=== PATIENT | female | born 1950 | race Caucasian/White ===

== ENCOUNTER → 2019-09-17 15:59 | Outpatient (CLI) | payer MEDICARE, SELFPAY ==
--- NOTE | ~2019-09-17 | MM_ITS ---
EXAMINATION: MM screening juan a BI w ricardo HISTORY: Screening mammogram TECHNIQUE: Craniocaudal and mediolateral oblique 3-D tomosynthesis images were obtained and synthetic 2-D images were generated. CAD analysis was submitted and interpreted. COMPARISON: Comparison to multiple prior studies sequentially, with oldest reviewed study dated 04/01. BREAST PARENCHYMAL COMPOSITION: There are scattered areas of fibroglandular density. FINDINGS: Stable benign-appearing bilateral breast masses. There is no evidence of suspicious mass, c alcification, or architectural distortion to suggest malignancy in either breast. There has been no s uspicious interval change. IMPRESSION: 1. No mammographic evidence of malignancy. 2. Recommend routine screening mammography in one year. BI-RADS Category 2: Benign finding(s). Reviewed, dictated and finalized at location A.
== END ==
PROVIDERS: PCP Physician Assistant; Visit Provider Physician Assistant
DX: Z12.31 Encounter for screening mammogram for malignant neoplasm of breast (principal)
CPT/HCPCS: 77063; 77067

== ENCOUNTER → 2020-11-08 16:03 | Outpatient (CLI) | payer MEDICARE, SELFPAY ==
--- NOTE | ~2020-11-08 | MM_ITS ---
EXAMINATION: MM screening ju[facility] a BI w ricardo HISTORY: Screening mammogram TECHNIQUE: Craniocaudal and mediolateral oblique 3-D tomosynthesis images were obtained and synthetic 2-D images were generated. CAD analysis was submitted and interpreted. COMPARISON: 09/17/2019, 07/24/2018, 07/10/2017 BREAST PARENCHYMAL COMPOSITION: The breasts are almost entirely fatty. FINDINGS: Again noted are stable left breast masses, considered benign given the lack of interval rajendra nge. There is no evidence of suspicious mass, calcification, or architectural distortion to suggest m alignancy in either breast. There has been no suspicious interval change. IMPRESSION: 1. No mammographic evidence of malignancy. 2. Recommend routine screening mammography in one year. BI-RADS Category 2: Benign finding(s). Reviewed, dictated and finalized at location A.
== END ==
PROVIDERS: PCP Physician Assistant; Visit Provider Physician Assistant
DX: Z12.31 Encounter for screening mammogram for malignant neoplasm of breast (principal)
CPT/HCPCS: 77063; 77067

== ENCOUNTER → 2022-02-22 12:05 | Outpatient (CLI) | payer MEDICARE, OTHER, SELFPAY ==
--- NOTE | ~2022-02-22 | DEXA_ITS ---
Bone Density Report Name: ALON GUNTER Age: 71 Sex: Female Ethnicity: White Date of : 1950 Indication: postmenopausal; screening for osteoporosis; height loss; Referring Provider: GUERA, YOLANDA Mobley Study: Bone densitometry was performed. Exam Date: February 22, 2022 Accession number: [id number] Bone Density: Region BMD T-score Z-score Classification AP Spine (L1-L4) 0.928 -1.1 1.2 Osteopenia Femoral Neck (Left) 0.665 -1.7 0.3 Osteopenia Total Hip (Left) 0.821 -1.0 0.7 Normal Femoral Neck (Right) 0.754 -0.9 1.1 Normal Total Hip (Right) 0.858 -0.7 1.0 Normal Total Hip Mean 0.840 -0.9 0.9 Normal World Health Organization criteria for BMD impression classify patients as: Normal (T-score at or above -1.0), Osteopenia (T-score between -1.0 and -2.5), or Osteoporosis (T-score at or below -2.5). 10-year Fracture Risk(1): Major Osteoporotic Fracture 11% Hip Fracture 2.1% Reported Risk Factors: [place] (), Neck BMD=0.665, BMI=30.0 (1) FRAX(R) Version 3.08. Fracture probability calculated for an untreated patient. Fracture probability may be lower if the patient has received treatment. Previous Exams: Region Exam Age BMD T-score BMD Change BMD Change Date g/cm2 vs Baseline vs Previous AP Spine(L1-L4) 02/22/2022 71 0.928 -1.1 -0.040* -0.040* 09/06/2010 60 0.968 -0.7 Total Hip(Left) 02/22/2022 71 0.821 -1.0 -0.093* -0.093* 09/06/2010 60 0.914 -0.2 Total Hip(Right) 02/22/2022 71 0.858 -0.7 -0.063* -0.063* 09/06/2010 60 0.920 -0.2 *Denotes significance at 95% confidence level, LSC for AP Spine = 0.022 g/cm2, LSC for Total Hip = 0.027 g/cm2 Clinical Information Provided by Patient: Has used the following medications: Vitamin D Patient maximum height was 67 Menopause Age: 48 No regular weight bearing exercise Drinks caffeinated beverages Onset of menses at age 9 Number of children 2 Impression: The patient has low bone mass, based on the Left Femoral Neck T-score. The patient has an estimated ten-year risk of hip fracture of 2.1% and an estimated ten-year risk of major fracture of 11%, based on the WHO FRAX algorithm. The BMD for the AP Spine(L1-L4) decreased, changing by -0.040 since the last DXA exam. The BMD for the Total Hip(Left) decreased, changing by -0.093 since the last DXA exam. The BMD for the Total Hip(Right) decreased, changing by -0.063 since th
== END ==
PROVIDERS: PCP Physician Assistant; Visit Provider Physician Assistant
DX: Z78.0 Asymptomatic menopausal state (principal); M85.88 Other specified disorders of bone density and structure, other site; M85.852 Other specified disorders of bone density and structure, left thigh
CPT/HCPCS: 77080

== ENCOUNTER → 2022-03-20 12:36 | Outpatient (CLI) | payer MEDICARE, OTHER, SELFPAY ==
--- NOTE | ~2022-03-20 | MM_ITS ---
EXAMINATION: MM screening [place] BI w ricardo HISTORY: Screening mammogram TECHNIQUE: Craniocaudal and mediolateral oblique 3-D tomosynthesis images were obtained and synthetic 2-D images were generated. CAD analysis was submitted and interpreted. COMPARISON: 11/08/2020, 09/17/2019, 07/24/2018 BREAST PARENCHYMAL COMPOSITION: The breasts are almost entirely fatty. FINDINGS: Stable left breast masses are again noted and considered benign given the lack of interval change. There is no suspicious mass, calcification, or architectural distortion to suggest malignancy in either breast. There has been no suspicious interval change. IMPRESSION: 1. No mammographic evidence of malignancy. 2. Recommend routine screening mammography in one year. BI-RADS Category 2: Benign finding(s). Reviewed, dictated and finalized at location A.
== END ==
PROVIDERS: PCP Physician Assistant; Visit Provider Physician Assistant
DX: Z12.31 Encounter for screening mammogram for malignant neoplasm of breast (principal)
CPT/HCPCS: 77063; 77067

== ENCOUNTER 2022-06-08 09:28 | Emergency (ER) | payer MEDICARE, OTHER, SELFPAY ==
--- NOTE | ~2022-06-08 | XR_ITS ---
XR chest 2V DATE: 06/08/2022 09:53 INDICATION: Chest pain TECHNIQUE: PA and lateral views COMPARISON: 11/10/2018 2 view chest FINDINGS: Normal heart size. Aortic arch calcification. No hilar or mediastinal enlargement. No pulmonary infiltrate or consolidation, pleural effusion or pulmonary vascular congestion or pneumo thorax. Diffuse osteopenia. Right glenohumeral joint replacement. IMPRESSION: No active cardiac pulmonary disease Aortic calcification Osteopenia Right glenohumeral joint replacement Reviewed, dictated and finalized at location B. LL SHEAR OPERATOR
--- NOTE | 2022-06-08 09:29 | ECG_ITS ---
Measurements Intervals [place] Rate: 79 P: 51 IN: 182 QRS: -18 QRSD: 87 T: 47 QT: 372 QTc: 428 Interpretive Statements SINUS RHYTHM LOW QRS VOLTAGE IN PRECORDIAL LEADS [QRS DEFLECTION < 1.0 mV IN CHEST LEADS] LEFTWARD AXIS BORDERLINE ECG COMPARED TO ECG 11/10/2018 12:09:39 NO SIGNIFICANT CHANGES Electronically Signed On 06-08-2022 17:16:08 [employer] VOLLEYBALL COACH by Naeem Edmond M.D.
[2022-06-08 10:01] VITALS: BP 173/93; PULSE 80; RESP 16; TEMP 36.5; O2SAT 98
[2022-06-08 10:27] LABS: Basophils Percent Auto 0.7 % (0.2-1.2); Eosinophils Absolute Auto 0.1 K/mm3 (0-0.3); Eosinophils Percent Auto 1.1 % (0-4.4); Hematocrit 42.3 % (37.0-47.0); Hemoglobin 13.4 g/dL (12.0-15.0); Immature Granulocyte Absolute 0.03 K/mm3 (0.00-0.031); Immature Granulocyte Percent A 0.5 % (0-0.5); Lymphocytes Absolute Auto 1.91 K/mm3 (0.9-3.2); Lymphocytes Percent Auto 33.7 % (18.3-44.2); Mean Corpuscular HGB Conc 31.7 g/dl (32-36); Mean Corpuscular Hemoglobin 29.8 pg (26-34); Mean Corpuscular Volume 94.2 fl (80-100); Mean Platelet Volume 10.3 fl (7.4-10.4); Monocytes Absolute Auto 0.6 K/mm3 (0.1-0.6); Monocytes Percent Auto 9.7 % (2.6-8.5); Neutrophils Absolute Auto 3.1 K/mm3 (1.3-6.7); Neutrophils Percent Auto 54.3 % (45.5-73.1); Platelet Count Result 241 k/mm3 (150-375); Red Blood Count 4.49 M/mm3 (4.2-5.4); Red Cell Distribution Width 13.4 % (11.5-14.5); White Blood Count 5.7 K/mm3 (4.5-10.0)
[2022-06-08 10:32] LABS: Alanine Aminotransferase 23 U/L (6-35); Albumin Level 4.3 g/dL (3.5-5.1); Alkaline Phosphatase 63 U/L (38-126); Anion Gap 5 mmol/L (8-16); Aspartate Amino Transferase 22 U/L (14-36); Bilirubin,Total 1.1 mg/dL (0.2-1.3); Blood Urea Nitrogen 21 mg/dL (7-17); Calcium 8.5 mg/dL (8.4-10.2); Carbon Dioxide 27 mmol/L (22-30); Chloride 103 mmol/L (98-107); Estimated CRCL calculation 58 ml/min; Estimated Glomerular Filt Rate > 60; Glucose 102 mg/dL (65-110); Lipase 108 U/L (23-300); Sodium 135 mmol/L (137-145)
[2022-06-08 10:36] LABS: Prothrombin Time 12.5 Seconds (11.1-14.7)
[2022-06-08 10:37] LABS: Partial Thromboplastin Time 25.4 SECONDS (22.3-36.8)
[2022-06-08 10:43] LABS: Troponin I < 0.012 ng/mL (0.000-0.034)
[2022-06-08 13:41] LABS: Troponin I < 0.012 ng/mL (0.000-0.034)
[2022-06-08 13:53] VITALS: BP 142/86; PULSE 82; PULSE 93; RESP 14; O2SAT 100
--- NOTE | 2022-06-08 13:55 | ED.CHESTPAIN ---
HPI - Chest Pain General Chief Complaint: Chest Pain Stated Complaint: chest pain Time Seen by Provider: 06/08/22 13:33 Source: patient and RN notes reviewed Mode of arrival: ambulatory Limitations: no limitations History of Present Illness HPI narrative: This is a 71 year old female with history of GERD and hyperlipidemia who presents for chest discomfort. She states around 830 am this morning she was eating breakfast with her friends. She reports she developed midsternal chest pressure that is similar to her GERD, but it was more severe. She reports this pain was nonradiating. She denies having associated back pain, shoulder pain, diaphoresis or shortness of breath. She does report having nausea. She takes medication for GERD so she took a dose at onset of her pain. It was constant until her arrival to ER. She denies having any chest pain or discomfort. She feels better. She denies heart disease. Related Data Allergies Allergy/AdvReac Type Severity Reaction Status Date / Time Sulfa (Sulfonamide Allergy Mild Unknown Verified 06/08/22 13:54 Antibiotics) Review of Systems Review of Systems: All systems reviewed & are unremarkable except as noted in HPI and below Constitutional: Constitutional: Denies chills, Denies fatigue and Denies fever(s) ENT: Denies nasal congestion and Denies sore throat Cardiovascular: Cardiovascular: Reports chest pain and Denies rapid heart rate PMFSH Past Medical History Medical History (Updated 06/08/22 @ 14:06 by Madelyn Wynne MD) Hyperlipidemia Surgical History Surgical History (Updated 06/08/22 @ 14:00 by Madelyn Wynne MD) H/O shoulder replacement Social History Social History (Updated 06/08/22 @ 14:00 by Madelyn Wynne MD) Smoking status: Never smoker Exam Const: General: no acute distress and alert Nutritional Appearance: well nourished Orientation/consciousness: patient oriented x3 Limitations: no limitations HENMT: Face and sinus: normal facial exam Eyes: Conjunctivae: conjunctivae normal EOM: EOMs intact bilaterally Neck: Neck: normal visual inspection Chest: Chest palpation & inspection: normal inspection of the chest Resp: Effort & Inspection: normal respiratory effort Auscultation: clear to auscultation bilaterally Cardio: Rate: regular rate Rhythm: regular rhythm Heart sounds: no murmurs GI: Auscultation: normal bowel sounds Other: no tenderness, no guarding, no rebound, normal bowel sounds. Skin: General skin exam: normal color Rashes: no rashes Other: bruising to right thumb, no numbness, no tenderness Neuro: General: patient oriented x3, moves all extremities and CN's II-XI intact bilaterally Extrem: General: normal to inspection Psych: Mental Status: mental status grossly normal Affect: normal affect Attitude: cooperative Course Reevaluation(s) Reevaluation #1: Patient denies any chest discomfort. This pain does not sound anginal at this time. Heart score is 3 so she will be discharged for outpatient management. THis may be due to her GERD. Blood pressure improved. She does not seem to have high risk factors for aortic etiology or PE. Date: 06/08/22 Time: 14:02 Vital Signs Vital signs: Vital Signs Temperature 97.7 F 06/08/22 10:01 Pulse Rate 80 06/08/22 10:01 Respiratory Rate 16 06/08/22 10:01 Blood Pressure 173/93 H 06/08/22 10:01 Pulse Oximetry 98 06/08/22 10:01 Oxygen Delivery Room Air 06/08/22 10:01 Temperature 97.7 F 06/08/22 10:01 Pulse Rate 87 06/08/22 14:23 Respiratory Rate 16 06/08/22 14:23 Blood Pressure 147/85 H 06/08/22 14:23 Pulse Oximetry 98 06/08/22 14:23 Oxygen Delivery Room Air 06/08/22 10:01 MDM - Chest Pain Lab Data Attestation: I reviewed the patient's lab results. 06/08/22 10:14 06/08/22 10:14 Labs: Lab Results 06/08/22 06/08/22 06/08/22 Range/Units 10:14 10:14 10:14 WBC 5.7 (4.5-10.0)
[2022-06-08 14:23] VITALS: BP 147/85; PULSE 87; RESP 16; O2SAT 98
== END 2022-06-08 14:24 | disposition home or self-care (01) ==
PROVIDERS: Emergency Provider General Practice; PCP Physician Assistant
DX: R07.89 Other chest pain (principal); E78.5 Hyperlipidemia, unspecified; K21.9 Gastro-esophageal reflux disease without esophagitis; Z96.611 Presence of right artificial shoulder joint; R94.31 Abnormal electrocardiogram [ECG] [EKG]; I70.0 Atherosclerosis of aorta; M85.88 Other specified disorders of bone density and structure, other site
CPT/HCPCS: 36415; 71046; 80053; 83690; 84484; 85025; 85610; 85730; 93005; 99284

== ENCOUNTER → 2023-05-28 12:18 | Outpatient (CLI) | payer MEDICARE, OTHER, SELFPAY ==
--- NOTE | ~2023-05-28 | MM_ITS ---
EXAMINATION: MM screening juan a BI w ricardo HISTORY: Screening mammogram TECHNIQUE: Craniocaudal and mediolateral oblique 3-D tomosynthesis images were obtained and synthetic 2-D images were generated. CAD analysis was submitted and interpreted. COMPARISON: 03/20/2022, 11/08/2020, bilateral screening mammogram examinations BREAST PARENCHYMAL COMPOSITION: The breasts are almost entirely fatty. FINDINGS: Biopsy markers are noted on the left; history of prior benign breast biopsies. There is no evidence of suspicious mass, calcification, or architectural distortion to suggest malignancy in eith er breast. There has been no suspicious interval change. IMPRESSION: 1. No mammographic evidence of malignancy. 2. Recommend routine screening mammography in one year. BI-RADS Category 1: Negative Reviewed, dictated and finalized at location A. AL AGENT
== END ==
PROVIDERS: PCP Physician Assistant; Visit Provider Physician Assistant
DX: Z12.31 Encounter for screening mammogram for malignant neoplasm of breast (principal)
CPT/HCPCS: 77063; 77067

== ENCOUNTER 2024-07-23 14:21 | Outpatient (CLI) | payer MEDICARE, OTHER, SELFPAY ==
--- NOTE | ~2024-07-23 | MM_ITS ---
EXAMINATION: MM screening juan a BI w ricardo HISTORY: Screening TECHNIQUE: Craniocaudal and mediolateral oblique 3-D tomosynthesis images were obtained and synthetic 2-D images were generated. CAD analysis was submitted and interpreted. COMPARISON: Comparison to multiple prior studies sequentially, with oldest reviewed study dated 07/10. BREAST PARENCHYMAL COMPOSITION: Not Dense: The breasts are almost entirely fatty. FINDINGS: There is no evidence of suspicious mass, calcification, or architectural distortion to sugg est malignancy in either breast. There has been no suspicious interval change. IMPRESSION: 1. No mammographic evidence of malignancy. 2. Recommend routine screening mammography in one year. BI-RADS Category 1: Negative Reviewed, dictated and finalized at location A. RACTIVE MEDIA MARKETING DIRECTOR
== END 2024-07-23 14:22 | disposition home or self-care (01) ==
LOC: MICIMG 14:23
PROVIDERS: PCP Physician Assistant; Visit Provider Physician Assistant
DX: Z12.31 Encounter for screening mammogram for malignant neoplasm of breast (principal)
CPT/HCPCS: 77063; 77067

== ENCOUNTER 2024-08-07 08:10 | Outpatient (CLI) | payer MEDICARE, OTHER, SELFPAY ==
--- NOTE | ~2024-08-07 | XR_ITS ---
EXAMINATION: [id number]_[id number]_CR DATE: 08/07/2024 08:31 INDICATION: Left knee pain. TECHNIQUE: 2 views of left knee standing were obtained. COMPARISON: None. FINDINGS: Alignment is normal. No fracture. There is mild osteoarthritis of medial and patellofemoral compartments. There is a small knee joint effusion. IMPRESSION: 1. Mild left knee osteoarthritis. 2. Small left knee joint effusion. Reviewed, dictated and finalized at location A. ET LATHE TENDER
== END 2024-08-07 08:11 | disposition home or self-care (01) ==
PROVIDERS: PCP Physician Assistant; Visit Provider Physician Assistant
DX: M17.12 Unilateral primary osteoarthritis, left knee (principal); M25.462 Effusion, left knee
CPT/HCPCS: 73560

== ENCOUNTER 2024-08-10 13:03 | Outpatient (CLI) | payer MEDICARE, OTHER, SELFPAY ==
--- NOTE | ~2024-08-10 | MR_ITS ---
EXAMINATION: MR brain/brain stem wo/w con DATE: 08/10/2024 14:05 INDICATION: Dizziness. TECHNIQUE: Magnetic resonance imaging (MRI) of the brain and brainstem was performed without and with 15 mL MultiHance intravenous contrast. COMPARISON: None. FINDINGS: There are scattered areas of nonspecific increased T2-weighted signal intensity in the cere bral white matter and corry, which is within normal limits for the patient's age. There is no intracr anial hemorrhage, acute infarction, or abnormal intracranial mass lesion. The ventricles are normal i n size. The paranasal sinuses are clear. The orbits are normal. The mastoid air cells are normal. IMPRESSION: 1. Normal aging brain. Reviewed, dictated and finalized at location A. O UROLOGIST IMPRESSION: 1. Normal aging brain.
--- OUTSIDE RECORDS SUMMARY | 2024-08-10 13:23 | XMS_ITS | Encounter Summary ---
Author Organization [facility] Facility Care Team Providers Care Dental Claims Processor Name Role Phone Ashvin Dill Primary Care Provider [phone] Jame Espinoza MD Unavailable David Angel DO Primary Care Provider + Ashvin Dill Unavailable [phone] Ashvin Dill Primary Care Provider [phone] Janette Begum Ud, MD Unavailable No, Physician Primary Care Provider Ashvin Dill Primary Care Provider [phone] David Angel DO Unavailable [phone] Encounter Details Date Type Department Care Team (Latest Contact Info) Description 06/20/2016 Orders Only [facility] ProviderDulce MD [address] [place] [id number] Social History Tobacco Use Types Packs/Day Years Used Date Smoking Tobacco: Never Assessed Comments Unknown Sex and Gender Information Value Date Recorded Sex Assigned at Not on file Legal Sex Female 3:40 AM SUPPORT DIRECTOR Gender Identity Not on file Sexual Orientation Not on file documented as of this encounter Plan of Treatment Not on file documented as of this encounter Procedures Procedure Name Priority Date/Time Associated Diagnosis Comments SCAN - LABS 06/20/2016 12:00 AM SUPPORT DIRECTOR documented in this encounter Results * SCAN - LABS (06/20/2016 12:00 AM SUPPORT DIRECTOR) Narrative 06/20/2016 12:00 AM SUPPORT DIRECTOR Ordered by an unspecified provider. us Historical Provider Final Res ult documented in this encounter Visit Diagnoses Not on filedocumented in this encounter Care Teams Dental Claims Processor Relationship Specialty Start Date End Date Ashvin Dill PA PCP - General Family Medicine 01/05/19 02/14/23 David Angel DO [address] [place] [id number] PCP - General Family Medicine 02/15/23 04/04/23 Ashvin Dill PA PCP - General Family Medicine 04/05/23 06/17/24 No, Physician PCP - General 07/10/24 07/21/24 Ashvin Dill PA [address] [facility] [address] [place], [place] [id number] PCP - General Family Medicine 07/22/24 [place] [address] [place] [address] [address] [place] [address] Consulting Physician Pain Management 11/27/22 Ashvin Dill PA Physician Etl Software Engineer Family Medicine 02/15/23 Janette Begum Ud, MD [address] [place] [address] [address] [place], [place] [id number] Consulting Physician Surgery 09/25/23 David Angel DO [address] [place] [id number] Consulting Physician Family Medicine 07/22/24 documented as of this encounter
--- OUTSIDE RECORDS SUMMARY | 2024-08-10 13:23 | XMS_ITS | Encounter Summary ---
Author Organization [facility] Healthcare Address [address] [place] [address] Care Team Providers Care Optometric Assistant Name Role Phone Jame Espinoza MD Unavailable Ashvin Dill Unavailable [phone] Ashvin Dill Primary Care Provider [phone] Janette Begum Ud, MD Unavailable No, Physician Primary Care Provider [phone] Ashvin Dill Primary Care Provider [phone] David nAgel DO Unavailable [phone] Encounter Details Date Type Department Care Team (Late st Contact Info) Description 02/19/2024 Orders Only [facility] Health Information Management [address] [place] [id number] Scanning, Provider Social History Tobacco Use Types Packs/Day Years Used Date Smoking Tobacco: Former Cigarettes Q uit: 1970 Smokeless Tobacco: Never Alcohol Use Standard Drinks/Week Comments Not Currently 0 (1 standard drink = 0.6 oz pur e alcohol) AUDIT-C Answer Date Recorded Q1: How often do you have a drink containing alcohol? Never 12/10/2023 Q2: How many drinks containi ng alcohol do you have on a typical day when you are drinking? Patient does not drink Q3: How often do you have si x or more drinks on one occasion? Never 12/10/2023 PHQ-2 Answer Date Recorded PHQ-2 Total Score (If total score is 3 or more points, staff should administer the PHQ-9) 0 06/09/2023 Personal Safety Answer Date Recorded Have you ever been in or are you currently in a harmful physical or emotional relationship or is someone making you feel afraid or unsafe? Denies 10/16/2022 Comments No Sex and Gender Information Value Date Recorded Sex Assigned at Not on file Legal Sex Female 3:40 AM CAN SLIDER Gender Identity Not on file Sexual Orientation Not on file Occupation Industry Job Start Date Job End Date retired Not on file Not on file Not on file documented as of this encounter Plan of Treatment Not on file documented as of this encounter Procedures Procedure Name Priority Date/Time Associated Diagnosis Comments SCAN - RADIOLOGY/IMAGING 02/19/2024 documented in this encounter Results * SCAN - RADIOLOGY/IMAGING (02/19/2024) Anatomical Region Laterality Modality Other us Provider Scanning Final Result documented in this encounter Visit Diagnoses Not on filedocumented in this encounter Care Teams Optometric Assistant Relationship Specialty Start Date End Date Ashvin Dill PA [address] [place] [address] [place] [address] PCP - General Family Medicine 04/05/23 06/17/24 No, Physician PCP - General 07/10/24 07/21/24 Ashvin Dill PA [address] [facility] [address] [place] [address] PCP - General Family Medicine 07/22/24 Jame Espinoza MD [facility] [facility] [facility] [address] [place] [address] [facility] [place] [place], [place] [id number] Consulting Physician Pain Management 11/27/22 Ashvin Dill PA [address] [place] [address] [facility] [address] Physician [place]angel[place] Management Specialist Family Medicine 02/15/23 Janette Begum Ud, MD [address] [facility] [address] [place] [address] Consulting Physician Surgery 09/25/23 David Angel DO [address] [address] Consulting Physician Family Medicine 07/22/24 documented as of this encounter
--- OUTSIDE RECORDS SUMMARY | 2024-08-10 13:23 | XMS_ITS | Referral Summary ---
Author Organization [facility] Building Address [address] [place] [id number] Care Team Providers Care Supervisor Beater Room Name Role Phone Jame Espinoza MD Unavailable Ashvin Dill Unavailable [phone] Janette Begum Ud, MD Unavailable Ashvin Dill Primary Care Provider [phone] David Angel DO Unavailable [phone] Encounters Date Type Department Care Team Description 07/22/2024 9:16 AM CARTOGRAPHY/MAPPING TECHNICIAN - 07/22/2024 11:59 PM CARTOGRAPHY/MAPPING TECHNICIAN Hospital Encounter [facility] [address] Jame Espinoza MD Neural foraminal stenosis of lumbar spine (Primary Dx); Lumbar radiculopathy; Bulge of lumbar disc without myelopathy Discharge Disposition: Discharge to home or self care 06/23/2024 8:46 AM CARTOGRAPHY/MAPPING TECHNICIAN - 06/23/2024 11:59 PM CARTOGRAPHY/MAPPING TECHNICIAN Hospital Encounter [facility] [address] [address] Jame Espinoza MD Lumbar radiculopathy (Primary Dx); Bulge of lumbar disc without myelopathy; Neural foraminal stenosis of lumbar spine Discharge Disposition: Discharge to home or self care from Last 3 Months Allergies Active Allergy Reactions Criticality Noted Date Comments Sulfa (Sulfonamide Antibiotics) Other (See comments) Low 10/06/2018 bruising Medications cholecalciferol (VITAMIN D-3) 5,000 unit capsule 1 capsule (5,000 Units total) daily Active vitamin B complex capsule Take 1 capsule by mouth daily Active UNABLE TO FIND Take 1 each by mouth daily Med Name: Cinnamon Active pantoprazole DR (PROTONIX) 40 mg EC tablet Take 1 tablet (40 mg total) by mouth 2 (two) times a day 12/10/2023 Active sertraline (ZOLOFT) 100 mg tabletIndicatio ns:Other depression Take 1 tablet (100 mg total) by mouth daily 90 tablet 3 12/10/2023 Active traZODone (DESYREL) 50 mg tablet TAKE 1-2 TABLETS BY MOUTH NIGHTLY NEEDED FOR SLEEP. 180 tablet 1 12/26/2023 Active Active Problems Problem Noted Date Diagnosed Date Recurrent major depression 12/10/2023 Right foot pain 11/04/2023 Assessment & Plan (11/04/2023 3:05 PM CDT): Patient is healthy and stable and cleared for surgery with the same risk is others her age with her medical conditions provided preop is all normal Class 1 obesity due to exces s calories without serious comorbidity with body mass index (BMI) of 32.0 to 32.9 in adult 07/22/2023 Acute maxillary sinusitis 06/17/2023 Incontinence of feces 04/05/2023 Assessment & Plan (04/05/2023 8:30 AM CDT): Abdominal xray order for screen for constipation. Patient instructed to go to the ER if she develops abdominal pain/cramping, bloody stools, or in the incontinence worsen. Patient to be contacted once test results are obtained. Colonoscopy UTD last completed 07/2022 with normal results. Impacted cerumen of right ear 02/07/2023 Dysfunction of right eustachian tube 02/07/2023 Sensorineural hearing loss (SNHL) of both ears 0 02/07/2023 Acute pain of right knee 08/01/2022 Assessment & Plan (08/01/2022 2:30 PM CARTOGRAPHY/MAPPING TECHNICIAN): Images from the original note were not included. Reviewed x-rays options of treatment consent signed site prepped injection using 1 cc each (1% lidocain/lidocain/marcain 0.25%/kenalog 40) patient tolerated procedure with no complications drsg applied ice tid for 5-10 min f/u prn discussed s/s to monitor for that would warrent attention Ice for 5-10 minutes TID and activities resume slowly when pain free Chronic pain of left ankle 05/29/2022 Assessment & Plan (11/06/2022 10:17 AM CDT): Seen ortho, needs surgery, will try tramadol Assessment & Plan (05/29/2022 9:20 AM CARTOGRAPHY/MAPPING TECHNICIAN): Ongoing, giving t3, scheduled to see ortho Pes anserine bursitis 05/29/2022 Gastroesophageal reflux disease without esophagi tis 05/08/2022 Assessment & Plan (05/08/2022 10:06 AM CARTOGRAPHY/MAPPING TECHNICIAN): I am going to change her omeprazole to Nexium and I am going to add some Pepcid after dinner I suspect this the cause of her cough, she will follow-up with me in 3 weeks Disc degeneration, lumbar 01/16/2022 Assessment & Plan (07/17/2022 2:54 PM CARTOGRAPHY/MAPPING TECHNICIAN): Suspect pain in leg is radicular, see MRI lumbar, failed pain mgt, will try Neurontin then neurosurgery Spondylosis of lumbar region without myelopathy or radiculopathy 01/16/2022 Assessment & Plan (08/01/2022 2:30 PM CARTOGRAPHY/MAPPING TECHNICIAN): I think this is a contributing factor to her right leg pain but she also has moderate knee pain I am going to try a cortisone injection on today Primary osteoarthritis of right hip 01/16/2022 Interstitial myositis of left shoulder Assessment & Plan (09/21/2021 2:16 PM CDT): Images from the original note were not included. consent signed site prepped injection using 1 cc each (1% lidocain/lidocain/marcain 0.25%/kenalog 40) patient tolerated procedure with no complications drsg applied ice tid for 5-10 min f/u prn discussed s/s to monitor for that would warrent attention Ice for 5-10 minutes TID and activities resume slowly when pain free Assessment & Plan (08/24/2021 10:55 AM CARTOGRAPHY/MAPPING TECHNICIAN): Images from the original note were not included. consent signed site prepped injection using 1 cc each (1% lidocain/lidocain/marcain 0.25%/kenalog 40) patient tolerated procedure with no complications drsg applied ice tid for 5-10 min f/u prn discussed s/s to monitor for that would warrent attention Ice for 5-10 minutes TID and activities resume slowly when pain free Injected bilateral mid upper trap Right inguinal pain 02/06/2021 Oral ulcer 02/06/2021 Trochanteric bursitis 01/23/2021 Assessment & Plan (10/16/2021 1:43 PM CDT): Images from the original note were not included. consent signed site prepped injection using 1 cc each (1% lidocain/lidocain/marcain 0.25%/kenalog 40) patient tolerated procedure with no complications drsg applied ice tid for 5-10 min f/u prn discussed s/s to monitor for that would warrent attention Ice for 5-10 minutes TID and activities resume slowly when pain free Assessment & Plan (09/21/2021 2:16 PM CDT): This is currently stable Assessment & Plan (08/21/2021 1:40 PM CARTOGRAPHY/MAPPING TECHNICIAN): Images from the original note were not included. consent signed site prepped injection using 1 cc each (1% lidocain/lidocain/marcain 0.25%/kenalog 40) patient tolerated procedure with no complications drsg applied ice tid for 5-10 min f/u prn discussed s/s to monitor for that would warrent attention Ice for 5-10 minutes TID and activities resume slowly when pain free Assessment & Plan (03/21/2021 1:15 PM CDT): Images from the original note were not included. consent signed site prepped injection using 1 cc each (1% lidocain/lidocain/marcain 0.25%/kenalog 40) patient tolerated procedure with no complications drsg applied ice tid for 5-10 min f/u prn discussed s/s to monitor for that would warrent attention Ice for 5-10 minutes TID and activities resume slowly when pain free Assessment & Plan (02/06/2021 10:08 AM CDT): thisis mild and I suspect an insrtion tendon pain right medial groin, sending to PT Assessment & Plan (01/23/2021 10:16 AM CDT): We are going to alternate heat and ice, I sent a Medrol Dosepak, and were going to try physical therapy. If this fails we will try an injection Neck pain 05/30/2020 Assessment & Plan (05/30/2020 3:45 PM CARTOGRAPHY/MAPPING TECHNICIAN): SCM on right, sending to PT, use heat/ice and stretch Balance disorder 05/30/2020 Assessment & Plan (05/30/2020 3:46 PM CARTOGRAPHY/MAPPING TECHNICIAN): Sending to PT Overweight 02/08/2020 History of reverse total rep lacement of right shoulder joint 10/19/2019 Assessment & Plan (10/19/2019 8:18 AM CDT): Patient has no problems at this time. Follow-up with Dr. Santamaria as scheduled Dizziness 06/01/2019 Assessment & Plan (05/30/2020 3:46 PM CARTOGRAPHY/MAPPING TECHNICIAN): This is resolved Chronic right-sided low back pain with right-marcela ed sciatica 06/01/2019 Assessment & Plan (11/15/2021 1:19 PM CDT): Stop T3, trial of tramadol, sending to Pain mgt Assessment & Plan (10/16/2021 1:44 PM CDT): Chronic and ongoing, option for PT Assessment & Plan (03/21/2021 1:14 PM CDT): We are going need to get an MRI in the meanwhile I am going to put her on a Medrol Dosepak and I am going to give her some pain medication she already failed physical therapy Overweight (BMI 25.0-29.9) 05/05/2019 Bunion 01/15/2019 Other insomnia 01/15/2019 Assessment & Plan (11/03/2023 12:33 PM CDT): This is improved with trazodone continue current medications follow-up routine Assessment & Plan (09/04/2023 7:32 AM CARTOGRAPHY/MAPPING TECHNICIAN): Now controlled Assessment & Plan (11/06/2022 10:15 AM CDT): 5 mg did not work well, increase to 10 mg, Patient is in great health for age and we did discuss meds Assessment & Plan (09/06/2021 12:02 PM CARTOGRAPHY/MAPPING TECHNICIAN): This is not helping, will Give trial of short term ambien Assessment & Plan (02/06/2021 10:08 AM CDT): CPM, f/u routine Assessment & Plan (01/23/2021 10:16 AM CDT): Currently controlled with melatonin Assessment & Plan (05/30/2020 3:44 PM CARTOGRAPHY/MAPPING TECHNICIAN): Sleep hygiene dicussed, short term use of ambien, she used in the past Assessment & Plan (10/27/2019 8:52 AM CDT): No longer on ambien, sleep hygiene discussed BMI 28.0-28.9,adult 01/13/2019 Lung nodules 12/02/2018 Assessment & Plan (12/10/2023 9:32 AM CDT): 3 years stability Assessment & Plan (07/17/2022 2:53 PM CARTOGRAPHY/MAPPING TECHNICIAN): 3 years stability Assessment & Plan (05/08/2022 10:05 AM CARTOGRAPHY/MAPPING TECHNICIAN): Last CT this year shows 3 years stability suggesting these are benign Assessment & Plan (12/13/2021 1:39 PM CDT): Having CT Assessment & Plan (11/15/2021 1:20 PM CDT): Due for new CT Assessment & Plan (09/21/2021 2:16 PM CDT): Patient just had a CT showing stable nodules but it had a new ground-glass appearance her lungs are clear she is asymptomatic we agreed to repeat CT in 3 months Assessment & Plan (09/06/2021 12:01 PM CARTOGRAPHY/MAPPING TECHNICIAN): CT scheduled Assessment & Plan (08/21/2021 1:40 PM CARTOGRAPHY/MAPPING TECHNICIAN): New ct ordered Assessment & Plan (01/23/2021 10:16 AM CDT): This is stable recommendation was for repeat CT in 18-24 months Assessment & Plan (05/30/2020 3:45 PM CARTOGRAPHY/MAPPING TECHNICIAN): Ct 6 months Assessment & Plan (10/27/2019 8:51 AM CDT): CT in gael stable, recommend f/u ct 18-24 months, we did discuss possible 12 months Rib pain on right side 11/11/2018 Overview (11/11/2018): Patient was given 60 mg of Toradol IM in clinic, I requested the results of the x-rays that were done during urgent care, meds as ordered with moist heat/ice, option for physical therapy. If her symptoms persist this appears to clearly be musculoskeletal we do have the option of physical therapy. There was no trauma she was just rotating using a mop. Impingement syndrome of left shoulder 11/06/2018 OA left shoulder-moderate AC joint 11/06/2018 Assessment & Plan (10/19/2019 8:19 AM CDT): Minimal discomfort to palpation. Continue nonsteroidal anti-inflammatories and exercises. Follow-up as needed. Nontraumatic complete tear of left rotator cuff 11/06/2018 Assessment & Plan (10/19/2019 8:19 AM CDT): Minimal discomfort at this time. Will continue with her yoga/stretching exercises as well as meloxicam. If pain returns will reschedule for possible injection. The injection Dr. Burgess gave gave her a fair amount of relief. Follow-up as needed. Abnormal weight gain 10/14/2018 Assessment & Plan (11/07/2020 2:10 PM CDT): Overall Condition Chronic Condition: Uncontrolled. Treatment: New Medication: 1. Restart Topiramate 2. Split PHentermine half tablet BID. Follow up in 3 months Assessment & Plan (02/10/2020 1:26 PM CDT): Overall Condition Stable and Well-controlled. Treatment: Continue Present Management Follow up in 3 months Assessment & Plan (08/06/2019 9:44 AM CARTOGRAPHY/MAPPING TECHNICIAN): Clinical Notes: I spent More than 25 minutes Face to Face with Patient during office visit. More than 50% duration was spent toward Detailed Counselling including various kinds of Dietory methods, activities, medications and potential weight loss surgical options. Detailed Handouts on each topics were also printed and hand-delivered to the patient. Overall Condition Chronic Condition: Uncontrolled. Treatment: Recommended Therapeutic Lifestyle Modification and Medication Changes: Increase Topiramate 50mg BID. Follow up in 3 months Assessment & Plan (05/05/2019 9:52 AM CARTOGRAPHY/MAPPING TECHNICIAN): Overall Condition Chronic Condition: Uncontrolled. Treatment: New Medication: Start topiramate along with phenterimine. , Recommended Therapeutic Lifestyle Modification and Medication Changes: Adding Topiramate. Follow up in 3 months Assessment & Plan (01/13/2019 5:52 PM CDT): Discussed/Re-emphasized Diet (90%) + Physical Activity (10%) Plan: Discussed/Re-emphasized Vegetables/Fruits Nutritional Ranking Handout: Recommended >80% calories from Whole Food Plant Based Nutrition. Discussed/Re-emphasized Processed Food (Frozen, Canned, Fast, Refined...) vs. Whole Food/Organic/Non-GMO Discussed/Re-emphasized High Fiber Diet: How to increase fibers in diet Handout being provided. Discussed/Re-emphasized Forest/Phytochemicals Diet. Disucssed/Re-emphasized [place] Diet: Grocery List and Weekly Meal Plan provided. Discussed/Re-emphasized Low Carb Diet (<50g/day) with approximately Low Calories (<1200kcal/day): Grocery List, Daily Meal Plan and Healthy Alternative being provided. Discussed/Re-emphasized Non-weight bearing exercise to complete average 7500- 38153 steps per day: Swimming or Stationary Exercise Bike. Disccused/Re-emphasized MEDARDO/CPAP/Sleep. Disccused/Re-emphasized Good Carb/Protein/Fat. Discussed/Re-emphasized Glycemic Index/Load to determine Good vs. Bad Carbs. Discussed/Re-emphasized Behaviroral Modification to reduce stress by Yoga and Mindfulness. Discussed/Re-emphasized Small (<250kcal) vs. Large Meals (<450kcal) Based on Calories, not volume: Approximately Small Meals x 3 + Large Meal x 1 (Preferably Lunch). Discussed/Re-emphasized Small Meal Intermittent Snacking (<250kcal): Nuts (Soaked in water overnight), Berries, Seeds, Dried/Fresh Fruits/Vegetables. Discussed/Re-emphasized Energy Options: Vitamin B12 Tablets (2 hours prior to Dinner), Caffeine Tablets (in AM or Lunch Time) or FDA Approved Weight Loss Prescription Medications. Discussed/Re-emphasized Weight loss Medications in detail including side effects: Phenteramine, Qsymia, Belviq, Contrave, Saxenda! Consider OTC Meal Replacement Plans or Home Delivery Meal Plans. Encourage Monthly office visits to ensure accountability and continuous positive weight outcomes. General Guidelines: 1. Restrict Caloric Intake: Instead of calculating total calories, you can eliminate one food item from daily intake at a time that would be worth of 100-200 kcal. Minimize Processed carbohydrates (Potatoes, Pasta, Bread, rice and corn) and processed sugars (Sodas, Cookies, Donuts & Desserts). Small plates and bowels. Small meals (Under 250kcal) at a time! 2. Quality of Diet: Organic, Non-GMO, fresh, raw-food, whole-food & more fruits and vegetables. Look for lean protein (Soy, Lentils, beans, legumes and nuts). Avoid processed food (frozen, canned, fast-food). Shop food economically from multiple places. 3. Stress Reduction: Yoga, Mindfulness, Exercise, Volunteering, Spirituality! Mindfulness eating (Avoid multi-tasking while eating and Increase awareness of what food is doing to Body). 4. Quality Restful Sleep: Melatonin, Yoga-Nidra, Kiwi fruit. Avoid meals in last two hours of the day. Avoid Caffeine, alcohol, high sugar/desserts and tobacco with or after dinner. 5. Increase Exertion within Daily Activities: 7500-31029 Steps/day. Avoid Elevators, escalators at public places. Increase steps in parking lots!. Clinical Notes: I spent more than 30 minutes Face to Face with Patient during office visit. More than 50% duration was spent toward Detailed Counselling including various kinds of Dietory methods, activities, medications and potential weight loss surgical options. Detailed Handouts on each topics were also printed and hand-delivered to the patient. Assessment & Plan (10/14/2018 11:06 AM CDT): Discussed/Re-emphasized Diet (90%) + Physical Activity (10%) Plan: Discussed/Re-emphasized Vegetables/Fruits Nutritional Ranking Handout: Recommended >80% calories from Whole Food Plant Based Nutrition. Discussed/Re-emphasized Processed Food (Frozen, Canned, Fast, Refined...) vs. Whole Food/Organic/Non-GMO Discussed/Re-emphasized High Fiber Diet: How to increase fibers in diet Handout being provided. Discussed/Re-emphasized Forest/Phytochemicals Diet. Disucssed/Re-emphasized [place] Diet: Grocery List and Weekly Meal Plan provided. Discussed/Re-emphasized Low Carb Diet (<50g/day) with approximately Low Calories (<1200kcal/day): Grocery List, Daily Meal Plan and Healthy Alternative being provided. Discussed/Re-emphasized Non-weight bearing exercise to complete average 7500- 65492 steps per day: Swimming or Stationary Exercise Bike. Disccused/Re-emphasized MEDARDO/CPAP/Sleep. Disccused/Re-emphasized Good Carb/Protein/Fat. Discussed/Re-emphasized Glycemic Index/Load to determine Good vs. Bad Carbs. Discussed/Re-emphasized Behaviroral Modification to reduce stress by Yoga and Mindfulness. Discussed/Re-emphasized Small (<250kcal) vs. Large Meals (<450kcal) Based on Calories, not volume: Approximately Small Meals x 3 + Large Meal x 1 (Preferably Lunch). Discussed/Re-emphasized Small Meal Intermittent Snacking (<250kcal): Nuts (Soaked in water overnight), Berries, Seeds, Dried/Fresh Fruits/Vegetables. Discussed/Re-emphasized Energy Options: Vitamin B12 Tablets (2 hours prior to Dinner), Caffeine Tablets (in AM or Lunch Time) or FDA Approved Weight Loss Prescription Medications. Discussed/Re-emphasized Weight loss Medications in detail including side effects: Phenteramine, Qsymia, Belviq, Contrave, Saxenda! Consider OTC Meal Replacement Plans or Home Delivery Meal Plans. Encourage Monthly office visits to ensure accountability and continuous positive weight outcomes. General Guidelines: 1. Restrict Caloric Intake: Instead of calculating total calories, you can eliminate one food item from daily intake at a time that would be worth of 100-200 kcal. Minimize Processed carbohydrates (Potatoes, Pasta, Bread, rice and corn) and processed sugars (Sodas, Cookies, Donuts & Desserts). Small plates and bowels. Small meals (Under 250kcal) at a time! 2. Quality of Diet: Organic, Non-GMO, fresh, raw-food, whole-food & more fruits and vegetables. Look for lean protein (Soy, Lentils, beans, legumes and nuts). Avoid processed food (frozen, canned, fast-food). Shop food economically from multiple places. 3. Stress Reduction: Yoga, Mindfulness, Exercise, Volunteering, Spirituality! Mindfulness eating (Avoid multi-tasking while eating and Increase awareness of what food is doing to Body). 4. Quality Restful Sleep: Melatonin, Yoga-Nidra, Kiwi fruit. Avoid meals in last two hours of the day. Avoid Caffeine, alcohol, high sugar/desserts and tobacco with or after dinner. 5. Increase Exertion within Daily Activities: 7500-06270 Steps/day. Avoid Elevators, escalators at public places. Increase steps in parking lots!. Clinical Notes: More than 30 minutes being spent Face to Face with Patient during office visit. More than 50% duration was spent toward Detailed Counselling including various kinds of Dietory methods, activities, medications and potential weight loss surgical options. Detailed Handouts on each topics were also printed and hand-delivered to the patient. Gastroesophageal reflux disease without esophagi tis 10/01/2017 Overview (12/01/2018): Patient had evaluation for chronic cough and postnasal drip. Has noticed an increase in her reflux and now having difficulty swallowing we are going to get an EGD done further treatment based on results of EGD. Assessment & Plan (12/10/2023 9:31 AM CDT): Avoid spicy, fried, greasy foods Keep hydrated with clear liquids Elevate HOB 2- 3 inches Avoid or cut down on caffeine, chocolates, and ETOH No late meals, or heavy meals after 7 pm Reg daily exercise No tight fitting clothing Stop smoking - if smoker Watch for worsening symptoms - ie diarrhea, vomiting, nausea, blood per rectum, vomiting up blood ,fever, arthralgias, rash etc. RTC prn or if new symptoms arise Pt or parent verbalizes understanding . Continue Protonix at 40 mg Assessment & Plan (11/03/2023 12:33 PM CDT): Avoid spicy, fried, greasy foods Keep hydrated with clear liquids Elevate HOB 2- 3 inches Avoid or cut down on caffeine, chocolates, and ETOH No late meals, or heavy meals after 7 pm Reg daily exercise No tight fitting clothing Stop smoking - if smoker Watch for worsening symptoms - ie diarrhea, vomiting, nausea, blood per rectum, vomiting up blood ,fever, arthralgias, rash etc. RTC prn or if new symptoms arise Pt or parent verbalizes understanding . Continue Protonix at 40 mg Assessment & Plan (09/04/2023 7:32 AM CARTOGRAPHY/MAPPING TECHNICIAN): Images from the original note were not included. Avoid spicy, fried, greasy foods Keep hydrated with clear liquids Elevate HOB 2- 3 inches Avoid or cut down on caffeines, chocolates, and ETOH No late meals, or heavy meals after 7 pm Reg daily exercise No tight fitting clothing Stop smoking - if smoker Watch for worsening symptoms - ie diarrhea, vomiting, nausea, blood per rectum, vomiting up blood ,fever, arthralgias, rash etc. RTC prn or if new symptoms arise Pt or parent verbalizes understanding Assessment & Plan (11/06/2022 10:14 AM CDT): Images from the original note were not included. Avoid spicy, fried, greasy foods Keep hydrated with clear liquids Elevate HOB 2- 3 inches Avoid or cut down on caffeines, chocolates, and ETOH No late meals, or heavy meals after 7 pm Reg daily exercise No tight fitting clothing Stop smoking - if smoker Watch for worsening symptoms - ie diarrhea, vomiting, nausea, blood per rectum, vomiting up blood ,fever, arthralgias, rash etc. RTC prn or if new symptoms arise Pt or parent verbalizes understanding Assessment & Plan (08/01/2022 2:37 PM CARTOGRAPHY/MAPPING TECHNICIAN): Images from the original note were not included. Not controlled double medications, if this does nothelp needs EGD Avoid spicy, fried, greasy foods Keep hydrated with clear liquids Elevate HOB 2- 3 inches Avoid or cut down on caffeines, chocolates, and ETOH No late meals, or heavy meals after 7 pm Reg daily exercise No tight fitting clothing Stop smoking - if smoker Watch for worsening symptoms - ie diarrhea, vomiting, nausea, blood per rectum, vomiting up blood ,fever, arthralgias, rash etc. RTC prn or if new symptoms arise Pt or parent verbalizes understanding Assessment & Plan (07/17/2022 2:52 PM CARTOGRAPHY/MAPPING TECHNICIAN): Images from the original note were not included. Avoid spicy, fried, greasy foods Keep hydrated with clear liquids Elevate HOB 2- 3 inches Avoid or cut down on caffeines, chocolates, and ETOH No late meals, or heavy meals after 7 pm Reg daily exercise No tight fitting clothing Stop smoking - if smoker Watch for worsening symptoms - ie diarrhea, vomiting, nausea, blood per rectum, vomiting up blood ,fever, arthralgias, rash etc. RTC prn or if new symptoms arise Pt or parent verbalizes understanding Assessment & Plan (05/29/2022 9:18 AM CARTOGRAPHY/MAPPING TECHNICIAN): Not controlled, insurance not give Nexium, change to pantoprazole Assessment & Plan (12/13/2021 1:39 PM CDT): Images from the original note were not included. Avoid spicy, fried, greasy foods Keep hydrated with clear liquids Elevate HOB 2- 3 inches Avoid or cut down on caffeines, chocolates, and ETOH No late meals, or heavy meals after 7 pm Reg daily exercise No tight fitting clothing Stop smoking - if smoker Watch for worsening symptoms - ie diarrhea, vomiting, nausea, blood per rectum, vomiting up blood ,fever, arthralgias, rash etc. RTC prn or if new symptoms arise Pt or parent verbalizes understanding Assessment & Plan (11/15/2021 1:20 PM CDT): Images from the original note were not included. Avoid spicy, fried, greasy foods Keep hydrated with clear liquids Elevate HOB 2- 3 inches Avoid or cut down on caffeines, chocolates, and ETOH No late meals, or heavy meals after 7 pm Reg daily exercise No tight fitting clothing Stop smoking - if smoker Watch for worsening symptoms - ie diarrhea, vomiting, nausea, blood per rectum, vomiting up blood ,fever, arthralgias, rash etc. RTC prn or if new symptoms arise Pt or parent verbalizes understanding Assessment & Plan (09/21/2021 2:16 PM CDT): Images from the original note were not included. Avoid spicy, fried, greasy foods Keep hydrated with clear liquids Elevate HOB 2- 3 inches Avoid or cut down on caffeines, chocolates, and ETOH No late meals, or heavy meals after 7 pm Reg daily exercise No tight fitting clothing Stop smoking - if smoker Watch for worsening symptoms - ie diarrhea, vomiting, nausea, blood per rectum, vomiting up blood ,fever, arthralgias, rash etc. RTC prn or if new symptoms arise Pt or parent verbalizes understanding Assessment & Plan (09/06/2021 12:01 PM CARTOGRAPHY/MAPPING TECHNICIAN): Images from the original note were not included. Avoid spicy, fried, greasy foods Keep hydrated with clear liquids Elevate HOB 2- 3 inches Avoid or cut down on caffeines, chocolates, and ETOH No late meals, or heavy meals after 7 pm Reg daily exercise No tight fitting clothing Stop smoking - if smoker Watch for worsening symptoms - ie diarrhea, vomiting, nausea, blood per rectum, vomiting up blood ,fever, arthralgias, rash etc. RTC prn or if new symptoms arise Pt or parent verbalizes understanding Assessment & Plan (08/21/2021 1:41 PM CARTOGRAPHY/MAPPING TECHNICIAN): Images from the original note were not included. Avoid spicy, fried, greasy foods Keep hydrated with clear liquids Elevate HOB 2- 3 inches Avoid or cut down on caffeines, chocolates, and ETOH No late meals, or heavy meals after 7 pm Reg daily exercise No tight fitting clothing Stop smoking - if smoker Watch for worsening symptoms - ie diarrhea, vomiting, nausea, blood per rectum, vomiting up blood ,fever, arthralgias, rash etc. RTC prn or if new symptoms arise Pt or parent verbalizes understanding Assessment & Plan (02/06/2021 10:07 AM CDT): Images from the original note were not included. Avoid spicy, fried, greasy foods Keep hydrated with clear liquids Elevate HOB 2- 3 inches Avoid or cut down on caffeines, chocolates, and ETOH No late meals, or heavy meals after 7 pm Reg daily exercise No tight fitting clothing Stop smoking - if smoker Watch for worsening symptoms - ie diarrhea, vomiting, nausea, blood per rectum, vomiting up blood ,fever, arthralgias, rash etc. RTC prn or if new symptoms arise Pt or parent verbalizes understanding Assessment & Plan (05/30/2020 3:45 PM CARTOGRAPHY/MAPPING TECHNICIAN): Images from the original note were not included. Avoid spicy, fried, greasy foods Keep hydrated with clear liquids Elevate HOB 2- 3 inches Avoid or cut down on caffeines, chocolates, and ETOH No late meals, or heavy meals after 7 pm Reg daily exercise No tight fitting clothing Stop smoking - if smoker Watch for worsening symptoms - ie diarrhea, vomiting, nausea, blood per rectum, vomiting up blood ,fever, arthralgias, rash etc. RTC prn or if new symptoms arise Pt or parent verbalizes understanding Assessment & Plan (10/27/2019 8:50 AM CDT): Images from the original note were not included. Avoid spicy, fried, greasy foods Keep hydrated with clear liquids Elevate HOB 2- 3 inches Avoid or cut down on caffeines, chocolates, and ETOH No late meals, or heavy meals after 7 pm Reg daily exercise No tight fitting clothing Stop smoking - if smoker Watch for worsening symptoms - ie diarrhea, vomiting, nausea, blood per rectum, vomiting up blood ,fever, arthralgias, rash etc. RTC prn or if new symptoms arise Pt or parent verbalizes understanding At low risk for fall 10/01/2017 Overview (04/27/2019): Patient denies any falls Encounter for screening for other disorder 10/01 Overview (04/27/2019): Depression is currently controlled Encounter for general adult medical examination without abnormal findings 10/01/2017 Overview (04/27/2019): healthcare maintenance updated, bone density ordered, egd ordered Assessment & Plan (06/11/2023 8:34 AM CARTOGRAPHY/MAPPING TECHNICIAN): HEALTHCARE MAINTENANCE updated Encounter for risk and functional assessment 08/2017 Overview (04/27/2019): Patient is able to perform all ADLs Chronic bronchitis 05/16/2017 Assessment & Plan (07/17/2022 2:51 PM CARTOGRAPHY/MAPPING TECHNICIAN): Well controlled Assessment & Plan (05/29/2022 9:19 AM CARTOGRAPHY/MAPPING TECHNICIAN): Currently controlled Assessment & Plan (05/08/2022 10:05 AM CARTOGRAPHY/MAPPING TECHNICIAN): This is been controlled will continue to follow I suspect a chronic cough is due to GERD Depression 02/20/2017 Overview (12/01/2018): wants to try decreasing meds, on zoloft, trial cut dose in 1/2, 2 weeks. Assessment & Plan (12/10/2023 9:31 AM CDT): Well controlled, no SI/HI will continue to follow we will continue Zoloft and trazodone at current prescribed dose Assessment & Plan (11/03/2023 12:32 PM CDT): Well controlled, no SI/HI will continue to follow we will continue Zoloft and trazodone at current prescribed dose Assessment & Plan (09/04/2023 7:32 AM CARTOGRAPHY/MAPPING TECHNICIAN): Well controlled, no SI/HI will continue to follow Assessment & Plan (06/11/2023 8:33 AM CARTOGRAPHY/MAPPING TECHNICIAN): Well controlled, no SI/HI Assessment & Plan (11/06/2022 10:14 AM CDT): Well controlled with meds Assessment & Plan (07/17/2022 2:52 PM CARTOGRAPHY/MAPPING TECHNICIAN): Well controlled Assessment & Plan (05/29/2022 9:19 AM CARTOGRAPHY/MAPPING TECHNICIAN): controlled Assessment & Plan (05/08/2022 10:05 AM CARTOGRAPHY/MAPPING TECHNICIAN): This is well controlled with no SI HI continue current meds follow-up routine Assessment & Plan (12/13/2021 1:38 PM CDT): Adding remeron in hopes of dual affect with depression and insomnia Assessment & Plan (11/15/2021 1:19 PM CDT): Controlled, no SI/HI, CPM Assessment & Plan (10/16/2021 1:44 PM CDT): Improved with meds Assessment & Plan (09/21/2021 2:15 PM CDT): This is stable patient just had a recent change in her medication will continue to follow Assessment & Plan (09/06/2021 12:01 PM CARTOGRAPHY/MAPPING TECHNICIAN): Not controlled, primarily with 's advancing Alzheimer's, we are going to increase her Zoloft there is no SI HI there was 1 episode that he got a little aggressive I explained to her she is to call please her down 911 at any time she feels she is in danger and if this behavior continues we may have to talk seriously about an Alzheimer's Facility she tells me she does have an appointment with 1 Assessment & Plan (08/21/2021 1:41 PM CARTOGRAPHY/MAPPING TECHNICIAN): Well controlled, CPM, Assessment & Plan (02/06/2021 10:07 AM CDT): Well controlled, CPM Assessment & Plan (10/27/2019 8:50 AM CDT): Images from the original note were not included. The pharmacologic and nonpharmacologic treatment of anxiety/depression were discusses with the patient. Included was a discussion of the current treatment regimens and their proposed mechanism of action concerning brain chemistry. Discussed the role of counseling as an adjunct to medications should we agree to pursue this. The patient is non-suicidal, and agrees to inform us of any change in this status follow up in 4-6 weeks- sooner if any problems Dyslipidemia 06/20/2016 Overview (04/27/2019): Continue current medicines diet exercise weight reduction labs as ordered if normal follow-up in 6 months. Assessment & Plan (12/10/2023 9:32 AM CDT): Patient is to continue present medications, work on diet and exercise as discussed, we did discuss the medications and potential side effects and signs and symptoms that would warrant calling office. Follow up routine. Assessment & Plan (09/04/2023 7:34 AM CARTOGRAPHY/MAPPING TECHNICIAN): Patient is to continue present medications, work on diet and exercise as discussed, we did discuss the medications and potential side effects and signs and symptoms that would warrant calling office. Follow up routine. Assessment & Plan (06/11/2023 8:34 AM CARTOGRAPHY/MAPPING TECHNICIAN): Continue diet and activity Assessment & Plan (11/06/2022 10:14 AM CDT): Patient is to continue present medications, work on diet and exercise as discussed, we did discuss the medications and potential side effects and signs and symptoms that would warrant calling office. Follow up routine. Assessment & Plan (07/17/2022 2:52 PM CARTOGRAPHY/MAPPING TECHNICIAN): Patient is to continue present medications, work on diet and exercise as discussed, we did discuss the medications and potential side effects and signs and symptoms that would warrant calling office. Follow up routine. Assessment & Plan (05/29/2022 9:18 AM CARTOGRAPHY/MAPPING TECHNICIAN): Patient is to continue present medications, work on diet and exercise as discussed, we did discuss the medications and potential side effects and signs and symptoms that would warrant calling office. Follow up routine. Assessment & Plan (05/08/2022 10:05 AM CARTOGRAPHY/MAPPING TECHNICIAN): Patient is to continue present medications, work on diet and exercise as discussed, we did discuss the medications and potential side effects and signs and symptoms that would warrant calling office. Follow up routine. Assessment & Plan (12/13/2021 1:39 PM CDT): Patient is to continue present medications, work on diet and exercise as discussed, we did discuss the medications and potential side effects and signs and symptoms that would warrant calling office. Follow up routine. Assessment & Plan (11/15/2021 1:19 PM CDT): CPM, labs next visit Assessment & Plan (10/16/2021 1:44 PM CDT): Patient is to continue present medications, work on diet and exercise as discussed, we did discuss the medications and potential side effects and signs and symptoms that would warrant calling office. Follow up routine. Assessment & Plan (09/21/2021 2:15 PM CDT): Patient is to continue present medications, work on diet and exercise as discussed, we did discuss the medications and potential side effects and signs and symptoms that would warrant calling office. Follow up routine. Assessment & Plan (09/06/2021 12:01 PM CARTOGRAPHY/MAPPING TECHNICIAN): Patient is to continue present medications, work on diet and exercise as discussed, we did discuss the medications and potential side effects and signs and symptoms that would warrant calling office. Follow up routine. Assessment & Plan (08/21/2021 1:41 PM CARTOGRAPHY/MAPPING TECHNICIAN): Patient is to continue present medications, work on diet and exercise as discussed, we did discuss the medications and potential side effects and signs and symptoms that would warrant calling office. Follow up routine. Assessment & Plan (01/23/2021 10:16 AM CDT): Patient is to continue present medications, work on diet and exercise as discussed, we did discuss the medications and potential side effects and signs and symptoms that would warrant calling office. Follow up routine. Assessment & Plan (08/08/2020 2:23 PM CARTOGRAPHY/MAPPING TECHNICIAN): Still not controlled, increase medications, labs 6 weeks Assessment & Plan (05/30/2020 3:45 PM CARTOGRAPHY/MAPPING TECHNICIAN): Diet and exercise Assessment & Plan (10/27/2019 8:50 AM CDT): Patient is to continue present medications, work on diet and exercise as discussed, we did discuss the medications and potential side effects and signs and symptoms that would warrant calling office. Follow up routine. Dyspnea on exertion 06/20/2016 Hyperkalemia 06/20/2016 Overview (04/27/2019): Patient is due for labs are ordered today. Resolved Problems Problem Noted Date Diagnosed Date Resolved Date Elevated carcinoembryonic antigen (CEA) 08/08/2020 06/11/2023 Overview (08/08/2020): Patient and I discussed options she is going to go through with a colonoscopy Assessment & Plan (08/22/2020 11:41 AM CARTOGRAPHY/MAPPING TECHNICIAN): Negative colonoscopy, will Get CT abd/pelvis, If this is negative, will discuss with Oncology Obesity (BMI 30-39.9) 10/14/20182018 Assessment & Plan (10/14/2018 11:07 AM CDT): Recommended aggressive Lifestyle modification and weight loss for improving overall weight related health conditions. Follow up in 1 or 3 months for continuing Lifestyle Medicine education and management visit. Sleep apnea 07/03/2018 08/22/2020 Overview (12/01/2018): not treating, has appt Assessment & Plan (01/23/2021 10:16 AM CDT): Not using CPAP Assessment & Plan (10/27/2019 8:50 AM CDT): Currently not treating, recommend sleep consult Immunizations Name Administration Dates Next Due Influenza, Trivalent, High D ose, Split, Preservative Free, Intramuscular 04/27/2019,03/31/2018 Influenza, Unspecified 03/31/2023,2021,05/24/2021(Defer red: Patient Refused),05/18/2021(Deferred: Patient Refused),04/30/2021,03/31/2021(Deferre d: Patient decision),03/31/2020,04/27/2019 Moderna SARS-CoV-2 Monovalen t Vaccination (12+ YRS) 09/13/2020,08/03/2020 PPD TEST 06/05/2016 Pneumococcal Conjugate PCV 13 04/27/2019 Pneumococcal Conjugate Pcv20 03/14/2023 RSV Vaccine, Pref, Recombina nt, Subunit, Adjuvanted, PF, IM (Arexvy) 03/14/2023 ZOSTER Recombinant 02/15/2023 Social History Tobacco Use Types Packs/Day Years Used Date Smoking Tobacco: Former Cigarettes Q uit: 1970 Smokeless Tobacco: Never Tobacco Cessation:Counseling Given: Not Answered Alcohol Use Standard Drinks/Week Comments Not Currently 0 (1 standard drink = 0.6 oz pur e alcohol) AUDIT-C Answer Date Recorded Q1: How often do you have a drink containing alcohol? Never 06/23/2024 Q2: How many drinks containi ng alcohol do you have on a typical day when you are drinking? Patient does not drink Q3: How often do you have si x or more drinks on one occasion? Never 06/23/2024 PHQ-2 Answer Date Recorded PHQ-2 Total Score [...] on file Legal Sex Female 3:40 AM CARTOGRAPHY/MAPPING TECHNICIAN Gender Identity Not on file Sexual Orientation Not on file Occupation Industry Job Start Date Job End Date retired Not on file Not on file Not on file Last Filed Vital Signs Vital Sign Reading Time Taken Comments Blood Pressure 108/74 07/22/2024 10:09 AM CARTOGRAPHY/MAPPING TECHNICIAN Pulse 75 07/22/2024 10:09 AM CARTOGRAPHY/MAPPING TECHNICIAN Temperature 36.4 C (97.5 F) 07/22/2024 9:27 AM CARTOGRAPHY/MAPPING TECHNICIAN Respiratory Rate 20 07/22/2024 10:09 AM CARTOGRAPHY/MAPPING TECHNICIAN Oxygen Saturation 95% 07/22/2024 10:09 AM CARTOGRAPHY/MAPPING TECHNICIAN Inhaled Oxygen Concentration - - Weight 82.1 kg (181 lb) 06/23/2024 8:53 AM CARTOGRAPHY/MAPPING TECHNICIAN Height 170.2 cm (5' 7 ) 06/23/2024 8:53 AM CARTOGRAPHY/MAPPING TECHNICIAN Body Mass Index 28.35 06/23/2024 8:53 AM CARTOGRAPHY/MAPPING TECHNICIAN Plan of Treatment Not on file Medical Devices Implanted Type Area Volunteer Services Coordinator Device Identifier Shelf Expiration Date Model / Serial / Lot Right Total Shoulder Right: Shoulder Procedures Procedure Name Priority Date/Time Associated Diagnosis Comments PAIN MGMT IMAGING LUMBAR/SACRAL SELECTIVE NERVE ROOT INJ (TFE) RIGHT Schedule Routine, Read Routine (OP Routine) 07/22/2024 9:48 AM CARTOGRAPHY/MAPPING TECHNICIAN Lumbar radiculopathy Bulge of lumbar disc without myelopathy COLONOSCOPY 07/23/2022 8:50 AM CARTOGRAPHY/MAPPING TECHNICIAN MAMMOGRAPHY Schedule Routine, Read Routine (OP Routine) 06/08/2022 HEPATITIS C ANTIBODY Routine 12/11/2021 1:27 PM CDT from Last 3 Months or Most Recently Relevant to Health Maintenance Results * Imaging Lumbar/Sacral Selective Nerve Root INJ (TFE) Right ([id number]) (07/22/2024 9:48 AM CARTOGRAPHY/MAPPING TECHNICIAN) Narrative [id number] - 07/22/2024 12:59 PM CARTOGRAPHY/MAPPING TECHNICIAN The images from this study are not interpreted by Radiology. Please refer to the physician's procedure / OR operative note. us Jame Espinoza MD IMG PAIN MGMT PROCEDURES Final R esult [id number] * COLONOSCOPY (07/23/2022 8:50 AM CARTOGRAPHY/MAPPING TECHNICIAN) Anatomical Region Laterality Modality Other Narrative Procedure Note Pascual Barajas MD - 07/23/2022 8:50 AM CST [facility] GI ENDOSCOPY Patient Name: Maria Teresa Maradiaga Procedure Date: 07/23/2022 8:50 AM Date of : 1950 Admit Type: Outpatient Age: 72 Gender: Female Attending MD: Pascual Barajas MD Room: [facility] ENDOSCOPY ROOM 05 Note Status: Finalized Procedure: Colonoscopy Indications: Screening for colorectal malignant neoplasm Referring MD: Ashvin Dill PA-C Providers: Pascual Barajas MD Medicines: Monitored Anesthesia Care Complications: No immediate complications. Estimated Blood Loss: Estimated blood loss: none. Procedure: The benefits, risks and alternatives of theprocedure and sedation were discussed and informed consentwas obtained. All questions were answered. Please referto the signed informed consent document in the medical record. The scope was passed under direct vision.The [id number] colonoscope was introduced through theanus and advanced to the cecum, identified byappendiceal orifice and ileocecal valve. The colonoscopy was performed without difficulty. The patient tolerated the procedure well. The quality of the bowel preparation was evaluated using the BBPS (BostonBowel Preparation Scale) with scores of: Right Colon = 3, Transverse Colon = 3 and Left Colon = 3 (entiremucosa seen well with no residual staining, smallfragments of stool or opaque liquid). The total BBPS score equals 9. The ileocecal valve, appendiceal orifice, and rectum were photographed. Prep was administeredin a split dose. Findings: The perianal and digital rectal examinations were normal. The entire examined colon appeared normal on direct and retroflexion views. Estimated blood loss: none. Impression: - The entire examined colon is normal on direct and retroflexion views. - No specimens collected. Recommendation: - Discharge patient to home (ambulatory). - Resume previous diet. - Continue present medications. - Repeat colonoscopy in 10 years for screening purposes. Pascual Barajas M.D. Pascual Barajas MD 07/23/2022 9:16:28 AM . Number of Addenda: 0 Note Initiated On: 07/23/2022 8:50 AM Recognized by the [employer] for promoting quality in endoscopy Pascual Barajas MD ENDOSCOPY PROCEDURES Fin al Result * MAMMOGRAPHY (06/08/2022) Anatomical Region Laterality Modality Breast Mammography Historical Provider IMG MAMMO PROCEDURES Namrata l Result * Hepatitis C antibody (12/11/2021 1:27 PM CDT) Hep C Ab <0.1 0.0 - 0.9 s/co ratio [facility] - Comment: Negative: < 0.8 Indeterminate: 0.8 - 0.9 Positive: > 0.9 HCV antibody alone does not differentiate between previous resolved infection and active infection. The CDC and current clinical guidelines recommend that a positive HCV antibody result be followed up with an HCV RNA test to support the diagnosis of acute HCV infection. [facility] offers Hepatitis C Virus (HCV) RNA, Diagnosis, HEDY (541949) and Hepatitis C Virus (HCV) Antibody with reflex to Quantitative Real-time PCR ([id number]). 12/11/2021 1:27 PM CDT 12/11/2021 Narrative [facility] - 12/12/2021 9:10 AM CDT Performed at: - [address] [id number] Sliver Machine Operator: Aj Galvan PhD, Phone: [phone] Ashvin R[facility] MICROBIOLOGY - GENERAL ORDMauri LIMON Final Result [facility] - from Last 3 Months or Most Recently Relevant to Health Maintenance Insurance MEDICARE [employer] [place] MEDICARE [place] [place] [address] [facility] Care Teams Supervisor Beater Room Relationship Specialty Start Date End Date Ashvin Dill PA [address] [facility] [address] [place] [address] PCP - General Family Medicine 07/22/24 Jame Espinoza MD [address] [place] [address] [address] [facility] [place] [address] Consulting Physician Pain Management 11/27/22 Ashvin Dill PA [address] [place] [address] [address] [facility] [place] [address] Physician Cannon Pinion Adjuster Family Medicine 02/15/23 [place] [address] [place] [address] [address] [facility] [place] [address] Consulting Physician Surgery 09/25/23 David Angel DO [address] [place] [id number] Consulting Physician Family Medicine 07/22/24
--- OUTSIDE RECORDS SUMMARY | 2024-08-10 13:23 | XMS_ITS | Clinical Summary ---
Author Organization [facility] Address [address] [place] [id number] Care Team Providers Care Director Database Name Role Phone Jame Espinoza MD Unavailable Ashvin Dill Unavailable [phone] Janette Begum Ud, MD Unavailable Ashvin Dill Primary Care Provider [phone] David Angel DO Unavailable [phone] Allergies Active Allergy Reactions Criticality Noted Date [...] 08/01/2022 Assessment & Plan (08/01/2022 2:30 PM LINE ASSEMBLY UTILITY WORKER): Images from the original note were not [...] tramadol Assessment & Plan (05/29/2022 9:20 AM LINE ASSEMBLY UTILITY WORKER): Ongoing, giving t3, scheduled to see ortho Pes anserine bursitis 05/29/2022 Gastroesophageal reflux disease without esophagi tis 05/08/2022 Assessment & Plan (05/08/2022 10:06 AM LINE ASSEMBLY UTILITY WORKER): I am going to change her omeprazole to Nexium and I am going to add some Pepcid after dinner I suspect this the cause of her cough, she will follow-up with me in 3 weeks Disc degeneration, lumbar 01/16/2022 Assessment & Plan (07/17/2022 2:54 PM LINE ASSEMBLY UTILITY WORKER): Suspect pain in leg is radicular, see MRI lumbar, failed pain mgt, will try Neurontin then neurosurgery Spondylosis of lumbar region without myelopathy or radiculopathy 01/16/2022 Assessment & Plan (08/01/2022 2:30 PM LINE ASSEMBLY UTILITY WORKER): I think this is a contributing factor [...] free Assessment & Plan (08/24/2021 10:55 AM LINE ASSEMBLY UTILITY WORKER): Images from the original note were not [...] stable Assessment & Plan (08/21/2021 1:40 PM LINE ASSEMBLY UTILITY WORKER): Images from the original note were not [...] 05/30/2020 Assessment & Plan (05/30/2020 3:45 PM LINE ASSEMBLY UTILITY WORKER): SCM on right, sending to PT, use heat/ice and stretch Balance disorder 05/30/2020 Assessment & Plan (05/30/2020 3:46 PM LINE ASSEMBLY UTILITY WORKER): Sending to PT Overweight 02/08/2020 History of reverse total rep lacement of right shoulder joint 10/19/2019 Assessment & Plan (10/19/2019 8:18 AM CDT): Patient has no problems at this time. Follow-up with Dr. Santamaria as scheduled Dizziness 06/01/2019 Assessment & Plan (05/30/2020 3:46 PM LINE ASSEMBLY UTILITY WORKER): This is resolved Chronic right-sided low back [...] routine Assessment & Plan (09/04/2023 7:32 AM LINE ASSEMBLY UTILITY WORKER): Now controlled Assessment & Plan (11/06/2022 10:15 AM CDT): 5 mg did not work well, increase to 10 mg, Patient is in great health for age and we did discuss meds Assessment & Plan (09/06/2021 12:02 PM LINE ASSEMBLY UTILITY WORKER): This is not helping, will Give trial of short term ambien Assessment & Plan (02/06/2021 10:08 AM CDT): CPM, f/u routine Assessment & Plan (01/23/2021 10:16 AM CDT): Currently controlled with melatonin Assessment & Plan (05/30/2020 3:44 PM LINE ASSEMBLY UTILITY WORKER): Sleep hygiene dicussed, short term use of ambien, she used in the past Assessment & Plan (10/27/2019 8:52 AM CDT): No longer on ambien, sleep hygiene discussed BMI 28.0-28.9,adult 01/13/2019 Lung nodules 12/02/2018 Assessment & Plan (12/10/2023 9:32 AM CDT): 3 years stability Assessment & Plan (07/17/2022 2:53 PM LINE ASSEMBLY UTILITY WORKER): 3 years stability Assessment & Plan (05/08/2022 10:05 AM LINE ASSEMBLY UTILITY WORKER): Last CT this year shows 3 years [...] months Assessment & Plan (09/06/2021 12:01 PM LINE ASSEMBLY UTILITY WORKER): CT scheduled Assessment & Plan (08/21/2021 1:40 PM LINE ASSEMBLY UTILITY WORKER): New ct ordered Assessment & Plan (01/23/2021 10:16 AM CDT): This is stable recommendation was for repeat CT in 18-24 months Assessment & Plan (05/30/2020 3:45 PM LINE ASSEMBLY UTILITY WORKER): Ct 6 months Assessment & Plan (10/27/2019 [...] months Assessment & Plan (08/06/2019 9:44 AM LINE ASSEMBLY UTILITY WORKER): Clinical Notes: I spent More than 25 [...] months Assessment & Plan (05/05/2019 9:52 AM LINE ASSEMBLY UTILITY WORKER): Overall Condition Chronic Condition: Uncontrolled. Treatment: New [...] fibers in diet Handout being provided. Discussed/Re-emphasized Mcalester/Phytochemicals Diet. Disucssed/Re-emphasized Meditarnean Diet: Grocery List and Weekly Meal Plan provided. Discussed/Re-emphasized Low Carb Diet (<50g/day) with approximately Low Calories (<1200kcal/day): Grocery List, Daily Meal Plan and Healthy Alternative being provided. Discussed/Re-emphasized Non-weight bearing exercise to complete average 7500- 70254 steps per day: Swimming or Stationary Exercise [...] dinner. 5. Increase Exertion within Daily Activities: 7500-69991 Steps/day. Avoid Elevators, escalators at public places. [...] fibers in diet Handout being provided. Discussed/Re-emphasized Mcalester/Phytochemicals Diet. Disucssed/Re-emphasized Meditarnean Diet: Grocery List and Weekly Meal Plan provided. Discussed/Re-emphasized Low Carb Diet (<50g/day) with approximately Low Calories (<1200kcal/day): Grocery List, Daily Meal Plan and Healthy Alternative being provided. Discussed/Re-emphasized Non-weight bearing exercise to complete average 7500- 28749 steps per day: Swimming or Stationary Exercise [...] dinner. 5. Increase Exertion within Daily Activities: 7500-21807 Steps/day. Avoid Elevators, escalators at public places. [...] mg Assessment & Plan (09/04/2023 7:32 AM LINE ASSEMBLY UTILITY WORKER): Images from the original note were not [...] understanding Assessment & Plan (08/01/2022 2:37 PM LINE ASSEMBLY UTILITY WORKER): Images from the original note were not [...] understanding Assessment & Plan (07/17/2022 2:52 PM LINE ASSEMBLY UTILITY WORKER): Images from the original note were not [...] understanding Assessment & Plan (05/29/2022 9:18 AM LINE ASSEMBLY UTILITY WORKER): Not controlled, insurance not give Nexium, change [...] understanding Assessment & Plan (09/06/2021 12:01 PM LINE ASSEMBLY UTILITY WORKER): Images from the original note were not [...] understanding Assessment & Plan (08/21/2021 1:41 PM LINE ASSEMBLY UTILITY WORKER): Images from the original note were not [...] understanding Assessment & Plan (05/30/2020 3:45 PM LINE ASSEMBLY UTILITY WORKER): Images from the original note were not [...] ordered Assessment & Plan (06/11/2023 8:34 AM LINE ASSEMBLY UTILITY WORKER): HEALTHCARE MAINTENANCE updated Encounter for risk and functional assessment 08/2017 Overview (04/27/2019): Patient is able to perform all ADLs Chronic bronchitis 05/16/2017 Assessment & Plan (07/17/2022 2:51 PM LINE ASSEMBLY UTILITY WORKER): Well controlled Assessment & Plan (05/29/2022 9:19 AM LINE ASSEMBLY UTILITY WORKER): Currently controlled Assessment & Plan (05/08/2022 10:05 AM LINE ASSEMBLY UTILITY WORKER): This is been controlled will continue to [...] dose Assessment & Plan (09/04/2023 7:32 AM LINE ASSEMBLY UTILITY WORKER): Well controlled, no SI/HI will continue to follow Assessment & Plan (06/11/2023 8:33 AM LINE ASSEMBLY UTILITY WORKER): Well controlled, no SI/HI Assessment & Plan (11/06/2022 10:14 AM CDT): Well controlled with meds Assessment & Plan (07/17/2022 2:52 PM LINE ASSEMBLY UTILITY WORKER): Well controlled Assessment & Plan (05/29/2022 9:19 AM LINE ASSEMBLY UTILITY WORKER): controlled Assessment & Plan (05/08/2022 10:05 AM LINE ASSEMBLY UTILITY WORKER): This is well controlled with no SI [...] follow Assessment & Plan (09/06/2021 12:01 PM LINE ASSEMBLY UTILITY WORKER): Not controlled, primarily with 's advancing Alzheimer's, [...] 1 Assessment & Plan (08/21/2021 1:41 PM LINE ASSEMBLY UTILITY WORKER): Well controlled, CPM, Assessment & Plan (02/06/2021 [...] routine. Assessment & Plan (09/04/2023 7:34 AM LINE ASSEMBLY UTILITY WORKER): Patient is to continue present medications, work on diet and exercise as discussed, we did discuss the medications and potential side effects and signs and symptoms that would warrant calling office. Follow up routine. Assessment & Plan (06/11/2023 8:34 AM LINE ASSEMBLY UTILITY WORKER): Continue diet and activity Assessment & Plan (11/06/2022 10:14 AM CDT): Patient is to continue present medications, work on diet and exercise as discussed, we did discuss the medications and potential side effects and signs and symptoms that would warrant calling office. Follow up routine. Assessment & Plan (07/17/2022 2:52 PM LINE ASSEMBLY UTILITY WORKER): Patient is to continue present medications, work on diet and exercise as discussed, we did discuss the medications and potential side effects and signs and symptoms that would warrant calling office. Follow up routine. Assessment & Plan (05/29/2022 9:18 AM LINE ASSEMBLY UTILITY WORKER): Patient is to continue present medications, work on diet and exercise as discussed, we did discuss the medications and potential side effects and signs and symptoms that would warrant calling office. Follow up routine. Assessment & Plan (05/08/2022 10:05 AM LINE ASSEMBLY UTILITY WORKER): Patient is to continue present medications, work [...] routine. Assessment & Plan (09/06/2021 12:01 PM LINE ASSEMBLY UTILITY WORKER): Patient is to continue present medications, work on diet and exercise as discussed, we did discuss the medications and potential side effects and signs and symptoms that would warrant calling office. Follow up routine. Assessment & Plan (08/21/2021 1:41 PM LINE ASSEMBLY UTILITY WORKER): Patient is to continue present medications, work [...] routine. Assessment & Plan (08/08/2020 2:23 PM LINE ASSEMBLY UTILITY WORKER): Still not controlled, increase medications, labs 6 weeks Assessment & Plan (05/30/2020 3:45 PM LINE ASSEMBLY UTILITY WORKER): Diet and exercise Assessment & Plan (10/27/2019 [...] colonoscopy Assessment & Plan (08/22/2020 11:41 AM LINE ASSEMBLY UTILITY WORKER): Negative colonoscopy, will Get CT abd/pelvis, If [...] CDT): Currently not treating, recommend sleep consult Encounters Date Type Department Care Team Description 07/22/2024 9:16 AM LINE ASSEMBLY UTILITY WORKER - 07/22/2024 11:59 PM LINE ASSEMBLY UTILITY WORKER Hospital Encounter [facility] [address] [place] [id number] Jame Espinoza MD Neural foraminal stenosis of lumbar spine (Primary Dx); Lumbar radiculopathy; Bulge of lumbar disc without myelopathy Discharge Disposition: Discharge to home or self care 06/23/2024 8:46 AM LINE ASSEMBLY UTILITY WORKER - 06/23/2024 11:59 PM LINE ASSEMBLY UTILITY WORKER Hospital Encounter [facility] [address] [place] [id number] Jame Espinoza MD Lumbar radiculopathy (Primary Dx); Bulge of lumbar disc without myelopathy; Neural foraminal stenosis of lumbar spine Discharge Disposition: Discharge to home or self care from Last 3 Months Immunizations Name Administration Dates Next Due Influenza, Trivalent, High D ose, Split, Preservative Free, Intramuscular 04/27/2019,03/31/2018 Influenza, Unspecified 03/31/2023,2021,05/24/2021(Defer red: Patient Refused),05/18/2021(Deferred: Patient Refused),04/30/2021,03/31/2021(Deferre d: Patient decision),03/31/2020,04/27/2019 Moderna SARS-CoV-2 Monovalen t Vaccination (12+ YRS) 09/13/2020,08/03/2020 PPD TEST 06/05/2016 Pneumococcal Conjugate PCV 13 04/27/2019 Pneumococcal Conjugate Pcv20 03/14/2023 RSV Vaccine, Pref, Recombina nt, Subunit, Adjuvanted, PF, IM (Arexvy) 03/14/2023 ZOSTER Recombinant 02/15/2023 Surgical History Surgery Date Site/Laterality Comments JOINT REPLACEMENT 07/01/2013 - 06/30/2014 Right total shoulder BREAST BIOPSY 12/30/2012 Left HYSTERECTOMY 07/01/1995 - 06/30/1996 COLONOSCOPY FOOT SURGERY rt hammertoe ANKLE SURGERY 07/01/2023 - 06/30/2024 Left left ankle mass removed Medical History Medical History Date Comments Anxiety Depression Hyperlipidemia GERD (gastroesophageal reflux disease) Arthritis Headache Ear problems Sleep difficulties Family History Medical History Relation Name Comments Cancer Brother Brother Anxiety disorder Father Father Cancer Father Father Heart disease Father Father No Known Problems Mother Deep vein thrombosis Other Hypertension Other Stroke Other Relation Name Status Comments Brother Brother Alive Father Father (Age 93) Mother (Age 98) Other Sister 1 Alive Sister 2 Alive Sister 3 Alive Social History Tobacco Use Types Packs/Day Years [...] on file Legal Sex Female 3:40 AM LINE ASSEMBLY UTILITY WORKER Gender Identity Not on file Sexual Orientation Not on file Occupation Industry Job Start Date Job End Date retired Not on file Not on file Not on file Obstetrics History Last Filed Vital Signs Vital Sign Reading Time Taken Comments Blood Pressure 108/74 07/22/2024 10:09 AM LINE ASSEMBLY UTILITY WORKER Pulse 75 07/22/2024 10:09 AM LINE ASSEMBLY UTILITY WORKER Temperature 36.4 C (97.5 F) 07/22/2024 9:27 AM LINE ASSEMBLY UTILITY WORKER Respiratory Rate 20 07/22/2024 10:09 AM LINE ASSEMBLY UTILITY WORKER Oxygen Saturation 95% 07/22/2024 10:09 AM LINE ASSEMBLY UTILITY WORKER Inhaled Oxygen Concentration - - Weight 82.1 kg (181 lb) 06/23/2024 8:53 AM LINE ASSEMBLY UTILITY WORKER Height 170.2 cm (5' 7 ) 06/23/2024 8:53 AM LINE ASSEMBLY UTILITY WORKER Body Mass Index 28.35 06/23/2024 8:53 AM LINE ASSEMBLY UTILITY WORKER Plan of Treatment Health Maintenance Due Date Last Done Comments Osteoporosis Screening-Bone Density Scan 1950 Hepatitis B Screening 1968 Covid-19 Vaccine (2023-2 5 season) 2024 05/02/2021, 09/13/2020, 08/03/2020 Influenza Vaccine (#1) 2024 , 05/17/2022, 04/30/2021, Additional history exists Depression Screening 06/11/2024 06/11/2023, 07/17/2022, 07/12/2021, Additional history exists Fall Risk Assessment 06/11/2024 06/11/2023, 04/05/2023, 07/23/2022, Additional history exists Well Visit 65+ 06/11/2024 06/11/2023, 06/01/2019 Hepatitis C Screening Completed 12/11/2021 Breast Cancer Screening-Mammogram Discontinued 022, 09/17/2019 Colon Cancer Screening-CT Colonography Discontinued 07/23/2022, 08/18/2020 Colon Cancer Screening-Colonoscopy Discontinued 07/23/2022, 08/18/2020 Colon Cancer Screening-DNA Stool Discontinued 07/23/2022, 08/18/2020, 05/10/2019, Additional history exists Colon Cancer Screening-FIT Discontinued 07/23, 08/18/2020, 05/10/2019, Additional history exists Colon Cancer Screening-FOBT Discontinued 07/02, 08/18/2020, 05/10/2019, Additional history exists Colon Cancer Screening-Sigmoidoscopy Discontinued 07/23/2022, 08/18/2020 Colorectal Cancer Screening Discontinued Zoster Vaccine Discontinued 02/15/2023 Pneumococcal vaccine 65+ Completed 03/14/2023, 04/01 DTaP/Tdap/Td Vaccine Discontinued Medical Devices Implanted Type Area Public Information Relations Manager Device Identifier Shelf Expiration Date Model / Serial / Lot Right Total Shoulder Right: Shoulder Procedures Procedure Name Priority Date/Time Associated Diagnosis Comments PAIN MGMT IMAGING LUMBAR/SACRAL SELECTIVE NERVE ROOT INJ (TFE) RIGHT Schedule Routine, Read Routine (OP Routine) 07/22/2024 9:48 AM LINE ASSEMBLY UTILITY WORKER Lumbar radiculopathy Bulge of lumbar disc without myelopathy COLONOSCOPY 07/23/2022 8:50 AM LINE ASSEMBLY UTILITY WORKER MAMMOGRAPHY Schedule Routine, Read Routine (OP Routine) 06/08/2022 HEPATITIS C ANTIBODY Routine 12/11/2021 1:27 PM CDT from Last 3 Months or Most Recently Relevant to Health Maintenance Results * Imaging Lumbar/Sacral Selective Nerve Root INJ (TFE) Right (73325) (07/22/2024 9:48 AM LINE ASSEMBLY UTILITY WORKER) Narrative MICAH_ALYMEGAN_MHB_MHE - 07/22/2024 12:59 PM LINE ASSEMBLY UTILITY WORKER The images from this study are not interpreted by Radiology. Please refer to the physician's procedure / OR operative note. us Jame Espinoza MD IMG PAIN MGMT PROCEDURES Final R esult RAD_CLARIO_MHB_MHE * COLONOSCOPY (07/23/2022 8:50 AM LINE ASSEMBLY UTILITY WORKER) Anatomical Region Laterality Modality Other Narrative Procedure Note Pascual Barajas MD - 07/23/2022 8:50 AM CST [facility] GI ENDOSCOPY Patient Name: Alon Maradiaga Procedure Date: 07/23/2022 8:50 AM Date of : 1950 Admit Type: Outpatient Age: 72 Gender: Female Attending MD: Pascual Barajas MD Room: [facility] ENDOSCOPY ROOM 05 Note Status: [...] The scope was passed under direct vision.The CF-[id number] colonoscope was introduced through theanus and advanced [...] On: 07/23/2022 8:50 AM Recognized by the [employer] for promoting quality in endoscopy us Pascual Barajas MD ENDOSCOPY PROCEDURES Fin al Result * MAMMOGRAPHY (06/08/2022) Anatomical Region Laterality Modality Breast Mammography Historical Provider IMG MAMMO PROCEDURES Namrata l Result * Hepatitis C antibody (12/11/2021 1:27 PM CDT) Hep C Ab <0.1 0.0 - 0.9 s/co ratio [facility] - Comment: Negative: < 0.8 Indeterminate: 0.8 - 0.9 Positive: > 0.9 HCV antibody alone does not differentiate between previous resolved infection and active infection. The CDC and current clinical guidelines recommend that a positive HCV antibody result be followed up with an HCV RNA test to support the diagnosis of acute HCV infection. [facility] offers Hepatitis C Virus (HCV) RNA, Diagnosis, HEDY (203255) and Hepatitis C Virus (HCV) Antibody with reflex to Quantitative Real-time PCR (102044). 12/11/2021 1:27 PM CDT 12/11/2021 Narrative [facility] - 12/12/2021 9:10 AM CDT Performed at: - [address] [id number] Horticulture Worker: Aj Galvan PhD, Phone: [phone] us Ashvin [facility] MICROBIOLOGY - GENERAL SARAH LIMON Final Result [facility] - from Last 3 Months or Most Recently Relevant to Health Maintenance Insurance MEDICARE [employer] [place] MEDICARE [facility] MEDICARE [employer] [place] Care Teams Director Database Relationship Specialty Start Date End Date Ashvin Dill PA [address] [place] [id number] PCP - General Family Medicine 07/22/24 Jame Espinoza MD [address] [place] [address] [address] [facility] [place] [address] Consulting Physician Pain Management 11/27/22 Ashvin Dill PA [address] [place] [address] [address] [facility] [place] [address] Physician Machine Paint Mixer Family Medicine 02/15/23 Janette Begum Ud, MD [facility] [address] [place] [address] Consulting Physician Surgery 09/25/23 David Angel DO [address] [address] Consulting Physician Family Medicine 07/22/24
--- OUTSIDE RECORDS SUMMARY | 2024-08-10 13:23 | XMS_ITS | Encounter Summary ---
Author Organization [facility] Care Team Providers Care Forestry Technician Name Role Phone Ashvin Dill Primary Care Provider [phone] Jame Espinoza MD Unavailable David Angel DO Primary Care Provider + Ashvin Dill Unavailable [phone] Ashvin Dill Primary Care Provider [phone] Janette Begum Ud, MD Unavailable No, Physician Primary Care Provider [phone] Ashvin Dill Primary Care Provider [phone] David Angel DO Unavailable [phone] Encounter Details Date Type Department Care Team (Latest Contact Info) Description 11/21/2017 Orders Only [facility] CLINCONV ProviderDulce MD [address] [place] [id number] Social History Tobacco Use Types Packs/Day Years Used Date Smoking Tobacco: Never Assessed Comments Unknown Sex and Gender Information Value Date Recorded Sex Assigned at Not on file Legal Sex Female 3:40 AM CRITICAL CARE NURSE Gender Identity Not on file Sexual Orientation Not on file documented as of this encounter Plan of Treatment Not on file documented as of this encounter Procedures Procedure Name Priority Date/Time Associated Diagnosis Comments SCAN - PATHOLOGY 11/21/2017 12:0 0 AM CDT documented in this encounter Results * SCAN - PATHOLOGY (11/21/2017 12:00 AM CDT) Narrative 11/21/2017 12:00 AM CDT Ordered by an unspecified provider. us Historical Provider MD Final Res ult documented in this encounter Visit Diagnoses Not on filedocumented in this encounter Care Teams Forestry Technician Relationship Specialty Start Date End Date Ashvin Dill PA PCP - General Family Medicine 01/05/19 02/14/23 David Angel DO [address] [place] [id number] PCP - General Family Medicine 02/15/23 04/04/23 Ashvin Dill PA PCP - General Family Medicine 04/05/23 06/17/24 No, Physician PCP - General 07/10/24 07/21/24 Ashvin Dill PA [address] [place] [address] [address] [place], [place] [address] PCP - General Family Medicine 07/22/24 Jame Espinoza MD [address] [place] [address] [address] [place] [address] Consulting Physician Pain Management 11/27/22 Ashvin Dill PA Physician Visiting Professor Family Medicine 02/15/23 Janette Begum Ud, MD [address] [place] [address] [phone] Consulting Physician Surgery 09/25/23 David Angel DO [address] [place] [address] [phone] Consulting Physician Family Medicine 07/22/24 documented as of this encounter
--- OUTSIDE RECORDS SUMMARY | 2024-08-10 13:24 | XMS_ITS | Referral Summary ---
Author Organization [facility] Address [facility] [place] [address] Care Team Providers Care Music Therapist Name Role Phone Ashvin Dill PA-C Primary Care Provider [phone] Source Comments [facility],non-owned Affiliates and Associated Physician Practices is amultiple site organization consisting of ambulatory clinics and hospital sitesin [place], [place], [place] and [place]. This disclosure is being madepursuant to the Care Everywhere program and may not contain all information available regarding this patient. Last updated 18.[facility] American Board of Addiction Medicine (ABAM) Social History Tobacco Use Types Packs/Day Years Used Date Smoking Tobacco: Never Assessed Sex and Gender Information Value Date Recorded Sex Assigned at Not on file Gender Identity Not on file Sexual Orientation Not on file Plan of Treatment Not on file Administered Medications Care Teams Music Therapist Relationship Specialty Start Date End Date Ashvin Dill PA-C PCP - General 06/05/16
--- OUTSIDE RECORDS SUMMARY | 2024-08-10 13:24 | XMS_ITS | Patient Health Summary ---
Author Organization [facility] Address [address] [place] [address] Care Team Providers Care Chief Innovation Officer Name Role Phone Ashvin Dill PA-C Primary Care Provider [phone] [facility] from [facility],non-owned Affiliates and Associated Physician Practices is amultiple site organization consisting of ambulatory clinics and hospital sitesin [place], [place], [place] and [place]. This disclosure is being madepursuant to the Care Everywhere program and may not contain all information available regarding this patient. Last updated 18.[facility] Social History Tobacco Use Types Packs/Day Years Used Date Smoking Tobacco: Never Assessed Sex and Gender Information Value Date Recorded Sex Assigned at Not on file Gender Identity Not on file Sexual Orientation Not on file Procedures * SKIN TEST PPD - POINT OF CARE(Performed 06/07/2016) Performed for Screening-pulmonary TB * DERMATOPATHOLOGY(Performed 03/18/2014) Results * SKIN TEST PPD - POINT OF CARE (06/07/2016 11:28 AM INVESTIGATIVE WRITER) PPD 0mm Comment:normal MISCELLANEOUS SAMPLE S / Unknown 06/07/2016 11:28 AM INVESTIGATIVE WRITER Allison [facility] LAB - POINT OF CARE ORDERABLES * PATHOLOGY TISSUE FOR DERMATOLOGY (03/18/2014 12:00 AM CDT) Result CASE: [id number] PATIENT: MARIA TERESA GUNTER PATHOLOGIC DIAGNOSIS: Right shoulder: MATURE ADIPOSE TISSUE CONSISTENT WITH LIPOMA CLINICAL DATA: Lipoma. GROSS DESCRIPTION: Received is one formalin filled container labeled with the patient's name and designated right shoulder. The specimen consists of a [id number] piece of soft yellow tissue distributed in 7 containers. A financial service representative section from each container is submitted in cassettes 1-7. Jar 1. MICROSCOPIC DESCRIPTION: There are typical adipocytes with minimal fibrous trabeculae. Electronically signed out by Ernestina Roger M.D. 03/23/2014 12:22:13PM [facility] Comment: Performed at: Dermatopathology Laboratory [facility] Department of Dermatology [address] [place] [address] 5th [place] [address] Phone number: [phone] FAX: [phone] 03/18/2014 03/22/2014 Lazaro Velasquez MD LAB - PATHOLOGY/CYTO LOGY ORDERABLES [facility] [address] [place] [address]. [facility] Floor Lab [address] [phone] Care Teams Chief Innovation Officer Relationship Specialty Start Date End Date Ashvin Dill PA-C PCP - General 06/05/16
--- OUTSIDE RECORDS SUMMARY | 2024-08-10 13:24 | XMS_ITS | Clinical Summary ---
Author Organization [facility] Address [address] [place] [address] Care Team Providers Care Orthodontic Technician Name Role Phone Ashvin Dill PA-C Primary Care Provider [phone] Source Comments [facility],non-owned Affiliates and Associated Physician Practices is amultiple site organization consisting of ambulatory clinics and hospital sitesin [place], [place], [place] and [place]. This disclosure is being madepursuant to the Care Everywhere program and may not contain all information available regarding this patient. Last updated 18.[facility] Social History Tobacco Use Types Packs/Day Years Used Date Smoking Tobacco: Never Assessed Sex and Gender Information Value Date Recorded Sex Assigned at Not on file Gender Identity Not on file Sexual Orientation Not on file Plan of Treatment Health Maintenance Due Date Last Done Comments BONE DENSITY TESTING 1948 COLOGUARD (AGES 45-75) - COL ON CA SCREENING 1948 COLON MONITORING 1948 COLONOSCOPY - COLON CA SCREENING 1948 CT COLONOGRAPHY - COLON CA SCREENING 1948 Colorectal Cancer Screening 1948 FIT - COLON CA SCREENING 1948 FLEX SIG - COLON CA SCREENING 1948 LIPID TESTING 1948 MAMMOGRAM 1948 HEPATITIS C SCREENING 07/11/1966 DTAP/TDAP/TD VACCINES (1 - Tdap) 1967 PNEUMOCOCCAL VACCINE 50+ (1 of 1 - PCV) 1998 ZOSTER VACCINE (1 of 2) 1998 Respiratory Syncytial Virus (RSV) Vaccine Pt: or over 60 yrs (1 - 1-dose 75+ series) 2023 COVID-19 VACCINE (3 - 2023-2 5 season) 2024 09/13/2020, 08/03/2020 INFLUENZA VACCINE (#1) 2024 0, 04/27/2019, 03/31/2018 DEPRESSION SCREENING 07/01/2024 HEPATITIS B VACCINE Aged Out No longe r eligible based on patient's age to complete this topic HIB VACCINE Aged Out No longer eligi ble based on patient's age to complete this topic HPV VACCINE Aged Out No longer eligi ble based on patient's age to complete this topic MENINGOCOCCAL (Group B) VACCINE Aged Out No longer eligible b ased on patient's age to complete this topic MENINGOCOCCAL VACCINE Aged Out No kanchan manuel eligible based on patient's age to complete this topic Care Teams Orthodontic Technician Relationship Specialty Start Date End Date Ashvin Dill PA-C PCP - General 06/05/16
--- OUTSIDE RECORDS SUMMARY | 2024-08-10 13:24 | XMS_ITS | Encounter Summary ---
Author Organization [facility] Care Team Providers Care Process Controls Technician Name Role Phone Ashvin Dill Primary Care Provider [phone] Jame Espinoza MD Unavailable David Angel DO Primary Care Provider + Ashvin Dill Unavailable [phone] Ashvin Dill Primary Care Provider [phone] Janette Begum Ud, MD Unavailable No, Physician Primary Care Provider [phone] Ashvin Dill Primary Care Provider [phone] David Angel DO Unavailable [phone] Encounter Details Date Type Department Care Team (Latest Contact Info) Description 11/18/2017 Orders Only [facility] ProviderDulce MD [address] [place] [id number] Social History Tobacco Use Types Packs/Day Years Used Date Smoking Tobacco: Never Assessed Comments Unknown Sex and Gender Information Value Date Recorded Sex Assigned at Not on file 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 Gender Identity Not on file Sexual Orientation [...] on filedocumented in this encounter Care Teams Process Controls Technician Relationship Specialty Start Date End Date Ashvin Dill PA PCP - General Family Medicine 01/05/19 02/14/23 David Angel DO [address] [place] [address] [id number] PCP - General Family Medicine 02/15/23 04/04/23 Ashvin Dill PA PCP - General Family Medicine 04/05/23 06/17/24 No, Physician PCP - General 07/10/24 07/21/24 Ashvin Dill PA [address] [place] [address] [address] [place], [place] [phone] PCP - General Family Medicine 07/22/24 Jame Espinoza MD [address] [place] [address] [address] [place] [address] Consulting Physician Pain Management 11/27/22 Ashvin Dill PA Physician Factory Engineer Family Medicine 02/15/23 Janette Begum Ud, MD [address] [place] [address] [phone] Consulting Physician Surgery 09/25/23 David Angel DO [address] [place] [address] [phone] Consulting Physician Family Medicine 07/22/24 documented as of this encounter
== END 2024-08-10 13:04 | disposition home or self-care (01) ==
LOC: ANHIMG 13:10
PROVIDERS: PCP Physician Assistant; Visit Provider Physician Assistant
DX: R42 Dizziness and giddiness (principal)
CPT/HCPCS: 70553; A9577